=== PATIENT | female | born 1955 | race Caucasian/White ===

== ENCOUNTER → 2021-11-09 11:00 | Outpatient (BNVA) | payer MEDICARE, OTHER, SELFPAY | PROVIDERS: PCP Internal Medicine; Visit Provider Psychiatry & Neurology Neurology | DX: R41.89 Other symptoms and signs involving cognitive functions and awareness (principal); F32.A Depression, unspecified; F41.9 Anxiety disorder, unspecified | CPT/HCPCS: 99202 ==

== ENCOUNTER → 2022-04-05 13:35 | Outpatient (BNVA) | payer MEDICARE, OTHER, SELFPAY | PROVIDERS: PCP Internal Medicine; Visit Provider Psychiatry & Neurology Neurology | DX: F03.90 Unspecified dementia, unspecified severity, without behavioral disturbance, psychotic disturbance, mood disturbance, and anxiety (principal); F32.A Depression, unspecified; F41.9 Anxiety disorder, unspecified | CPT/HCPCS: 99212 ==

== ENCOUNTER → 2022-07-30 13:58 | Outpatient (BNVA) | payer MEDICARE, OTHER, SELFPAY | PROVIDERS: PCP Internal Medicine; Visit Provider Psychiatry & Neurology Neurology | DX: F03.90 Unspecified dementia, unspecified severity, without behavioral disturbance, psychotic disturbance, mood disturbance, and anxiety (principal); F32.A Depression, unspecified; F41.9 Anxiety disorder, unspecified | CPT/HCPCS: 99212 ==

== ENCOUNTER → 2022-10-16 13:56 | Outpatient (BNVA) | payer MEDICARE, OTHER, SELFPAY | PROVIDERS: PCP Internal Medicine; Visit Provider Psychiatry & Neurology Neurology | DX: F03.90 Unspecified dementia, unspecified severity, without behavioral disturbance, psychotic disturbance, mood disturbance, and anxiety (principal); F32.A Depression, unspecified; F41.9 Anxiety disorder, unspecified | CPT/HCPCS: 99212 ==

== ENCOUNTER 2023-01-24 14:08 | Outpatient (AMB) | payer MEDICARE, OTHER, SELFPAY ==
--- NOTE | 2023-01-24 14:23 | A.OFFVIS_ITS ---
Intake Vital Signs 01/24/23 14:26 Height 5 ft 8 in Weight 114 lb BMI 17.3 BP 118/68 Blood Pressure Location Rt brachial Pulse 77 Pulse Source Pulse Oximeter Pulse Oximetry (%) 97 Oxygen Delivery Method Room Air Intake Visit Reasons: 3m f/u-lvm Intake Note: Pt presents today for fup in memory loss, pt states shes doing ok but depressed Allergies penicillin G Allergy (Mild, Verified 01/24/23 14:32) Unknown Medication List - Last Reconciled 01/24/23 by Joaquina Rios MD alprazolam (Xanax) 0.25 mg PO BEDTIME PRN alprazolam (Xanax) 0.25 mg PO BID PRN 30 days MDD 2 tabs donepezil 10 mg PO BEDTIME escitalopram oxalate 20 mg PO DAILY escitalopram oxalate 10 mg PO DAILY mirtazapine 30 mg PO BEDTIME omeprazole 20 mg PO DAILY ondansetron HCl 4 mg PO Q8H PRN HPI HPI Comments History of Present Illness0 Details 67y/o left handed [facility].she wakes up in the morning, very anxious, not motivated. Memory has been stable.Her neuropsyhc eval was c/w early Dementia and poorly controlled mood.she reports increased anxiety and depression. Her lexapro was increased to 30mg qd, has a therapist .Sleep is good with mirtazepine.she talks to a therapist. No thoughts of hurting herself she could not tolerate memantine Previous History- The patient noticed increase in forgetfulness with short term memory issues about 6mths to 1 year. It increases her anxiety which further worsens her cognition. she forgets conversations, misplace things, repeat questions, forgets appointments, uses a calender. she has trouble with computers. Her driving is Ok but anxious.she got lost once trying to find her friends house but as per her she was always bad with directions. 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 She thinks her mood worsened since then. She also had unexplained weight loss for more than 6 mths. she had nausea which is better. She was diagnosed with depression in 2003 when her father . In Mar 2020 her mood worsened and also had severe anxiety.. [facility] Medical History Shingles Malaise and fatigue Seasonal allergies Asthma Arthritis Anosmia Osteopenia Anxiety Depression Surgical History Hx of colonoscopy Hx of cholecystectomy Family History Father Arthritis, rheumatoid Mother Epilepsy Aneurysm Family/Other Migraine Family/Other Migraine Social History Household Members: Spouse Alcohol intake: never Patient Tobacco Use Status: Never used Tobacco service: No Current occupational status: retired Cognitive needs: No Hearing needs: No Vision needs: Yes Physical Exam Vital Signs: Last Vital Signs Pulse 77 01/24/23 14:26 BP 118/68 01/24/23 14:26 Pulse Ox 97 01/24/23 14:26 Oxygen Delivery Method Room Air 01/24/23 14:26 BMI result Body Mass Index 17.3 Const General: cooperative, healthy appearing, comfortable, no acute distress and anxious Nutritional Appearance: thin Orientation/consciousness: patient oriented x3 Limitations: no limitations HEENT Head: Yes normal to inspection Face and sinus: Yes normal facial exam Eyes Pupils: Equal, round and reactive pupils present Neuro Other: Mini Mental Status Exam Date-09/07 Place-09/07 Registration- 3/3 Spelling 5 letter backwards- 09/07 Recall- 3/3 3 step commands- 3/3 repetition- good naming- good reading- good Clock drawing was normal 30/30 Mild left UE cog wheel rigidity General: patient oriented x3 and moves all extremities Cranial nerves: Yes Facial sensation intact/muscles of mastication intact, Yes Equal, round and reactive pupils present, Yes Bilaterally intact EOM present, Yes Normal facial strength present and Yes Midline tongue present Cognition (Neuro): normal cognition Gait exam (Neuro): Other gait observations present (mild stoop and decreased arm swing - L>r) Motor exam (neuro): 5/5 motor strength present throughout Psych Affect: Anxious affect present Attitude: cooperative Assessment & Plan Assessment & Plan (1) Dementia: Code(s): F03.90 - Unspecified dementia, unspecified severity, without behavioral disturbance, psychotic disturbance, mood disturbance, and anxiety (2) Depression: Code(s): F32.A - Depression, unspecified (3) Anxiety: Code(s): F41.9 - Anxiety disorder, unspecified Plan Lexapro 30mg qd Increase mirtazepine 30mg qhs Xanax 0.25 mg as needed Psychiatry referral-PCP- seeing a therapist Melatonin 3-5 mg qhs Donepezil 10mg qd Neuropsych evaluation discussed in detail. Medications: Changed From mirtazapine 15 mg PO BEDTIME 90 tabs 2RF To mirtazapine 30 mg PO BEDTIME 30 tabs 2RF Coding Level of Care Code Est Pt Level 4 (55010) Diagnoses Dementia F03.90 Depression F32.A Anxiety F41.9
[2023-01-24 14:26] VITALS: BP 118/68; PULSE 77; O2SAT 97; BMI 17.3
== END 2023-01-24 14:48 | disposition home or self-care (01) ==
PROVIDERS: PCP Internal Medicine; Visit Provider Psychiatry & Neurology Neurology
DX: F03.90 Unspecified dementia, unspecified severity, without behavioral disturbance, psychotic disturbance, mood disturbance, and anxiety (principal); F32.A Depression, unspecified; F41.9 Anxiety disorder, unspecified
CPT/HCPCS: 99214

== ENCOUNTER → 2023-01-24 14:08 | Outpatient (BNVA) | payer MEDICARE, OTHER, SELFPAY | PROVIDERS: PCP Internal Medicine; Visit Provider Psychiatry & Neurology Neurology | DX: F03.90 Unspecified dementia, unspecified severity, without behavioral disturbance, psychotic disturbance, mood disturbance, and anxiety (principal); F32.A Depression, unspecified; F41.9 Anxiety disorder, unspecified | CPT/HCPCS: 99212 ==

== ENCOUNTER 2023-06-06 15:30 | Outpatient (AMB) | payer MEDICARE, OTHER, SELFPAY ==
--- NOTE | 2023-06-06 15:37 | A.OFFVIS_ITS ---
Intake Vital Signs 06/06/23 15:39 Height 5 ft 8 in Weight 122 lb 1 oz BMI 18.6 BP 100/62 Blood Pressure Location Lt brachial Position Sitting Respiration 16 Pulse 81 Pulse Source Pulse Oximeter Pulse Oximetry (%) 94 Oxygen Delivery Method Room Air Intake Visit Reasons: 3 mnts f/u appt/ Confirmed Intake Note: Pt presents for a 3 month follow up for memory disturbance.Pt notes no change in her symptoms since last visit. Bungy Jump Master Required: No Allergies penicillin G Allergy (Mild, Verified 06/06/23 15:38) Unknown Medication List - Last Reconciled 06/06/23 by Joaquina Rios MD alprazolam (Xanax) 0.25 mg PO BEDTIME PRN alprazolam (Xanax) 0.25 mg PO BID PRN 30 days MDD 2 tabs donepezil 10 mg PO BEDTIME duloxetine 60 mg PO DAILY mirtazapine 30 mg PO BEDTIME omeprazole 20 mg PO DAILY ondansetron HCl 4 mg PO Q8H PRN HPI HPI Comments History of Present Illness Details 67y/o left handed [facility] and anxiety.Her memory and mood are stable .she is seeing a psychiatric prescriber at [facility].Lexapro was d/c ed and she was started on duloxetine. Her neuropsyhc eval was c/w early Dementia and poorly controlled mood.she reports increased anxiety and depression. Her lexapro was increased to 30mg qd, has a therapist .Sleep is good with mirtazepine.she talks to a therapist. No thoughts of hurting herself she could not tolerate memantine Previous History- The patient noticed increase in forgetfulness with short term memory issues about 6mths to 1 year. It increases her anxiety which further worsens her cognition. she forgets conversations, misplace things, repeat questions, forgets appointments, uses a calender. she has trouble with computers. Her driving is Ok but anxious.she got lost once trying to find her friends house but as per her she was always bad with directions. 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 She thinks her mood worsened since then. She also had unexplained weight loss for more than 6 mths. she had nausea which is better. She was diagnosed with depression in 2003 when her father . In Mar 2020 her mood worsened and also had severe anxiety.. [facility] Medical History Shingles Malaise and fatigue Seasonal allergies Asthma Arthritis Anosmia Osteopenia Anxiety Depression Surgical History Hx of colonoscopy Hx of cholecystectomy Family History Father Arthritis, rheumatoid Mother Epilepsy Aneurysm Family/Other Migraine Family/Other Migraine Social History Household Members: Spouse Alcohol intake: never Patient Tobacco Use Status: Never used Tobacco service: No Current occupational status: retired Cognitive needs: No Hearing needs: No Vision needs: Yes Physical Exam Vital Signs: Last Vital Signs Pulse 81 06/06/23 15:39 Resp 16 06/06/23 15:39 BP 100/62 06/06/23 15:39 Pulse Ox 94 06/06/23 15:39 Oxygen Delivery Method Room Air 06/06/23 15:39 BMI result Body Mass Index 18.6 Const General: cooperative, healthy appearing, comfortable and no acute distress Nutritional Appearance: thin Orientation/consciousness: patient oriented x3 Limitations: no limitations HEENT Head: Yes normal to inspection Face and sinus: Yes normal facial exam Eyes Pupils: Equal, round and reactive pupils present Neuro Other: Mild left UE cog wheel rigidity General: patient oriented x3 and moves all extremities Cranial nerves: Yes Facial sensation intact/muscles of mastication intact, Yes Equal, round and reactive pupils present, Yes Bilaterally intact EOM present, Yes Normal facial strength present and Yes Midline tongue present Cognition (Neuro): normal cognition Gait exam (Neuro): Other gait observations present (mild stoop and decreased arm swing - L>r) Motor exam (neuro): 5/5 motor strength present throughout Psych Affect: Anxious affect present Attitude: cooperative Assessment & Plan Assessment & Plan (1) Dementia: Code(s): F03.90 - Unspecified dementia, unspecified severity, without behavioral disturbance, psychotic disturbance, mood disturbance, and anxiety (2) Depression: Code(s): F32.A - Depression, unspecified (3) Anxiety: Code(s): F41.9 - Anxiety disorder, unspecified Plan Duloxetine 60mg qd mirtazepine 30mg qhs Xanax 0.25 mg as needed Psychiatry -PCP- seeing a therapist Melatonin 3-5 mg qhs Donepezil 10mg qd Neuropsych evaluation discussed in detail. Medications: Discontinued escitalopram oxalate Discontinued Reason: Patient no longer taking 20 mg PO DAILY 30 tabs 6RF escitalopram oxalate Discontinued Reason: Patient no longer taking 10 mg PO DAILY 30 tabs 6RF Coding Level of Care Code Est Pt Level 4 (52733) Diagnoses Dementia F03.90 Depression F32.A Anxiety F41.9
[2023-06-06 15:39] VITALS: BP 100/62; PULSE 81; RESP 16; O2SAT 94; BMI 18.6
== END 2023-06-06 16:04 | disposition home or self-care (01) ==
PROVIDERS: PCP Internal Medicine; Visit Provider Psychiatry & Neurology Neurology
DX: F03.90 Unspecified dementia, unspecified severity, without behavioral disturbance, psychotic disturbance, mood disturbance, and anxiety (principal); F32.A Depression, unspecified; F41.9 Anxiety disorder, unspecified
CPT/HCPCS: 99214

== ENCOUNTER → 2023-06-06 15:30 | Outpatient (BNVA) | payer MEDICARE, OTHER, SELFPAY | PROVIDERS: PCP Internal Medicine; Visit Provider Psychiatry & Neurology Neurology | DX: F03.90 Unspecified dementia, unspecified severity, without behavioral disturbance, psychotic disturbance, mood disturbance, and anxiety (principal); F32.A Depression, unspecified; F41.9 Anxiety disorder, unspecified; Z79.899 Other long term (current) drug therapy | CPT/HCPCS: 99212 ==

== ENCOUNTER 2024-05-27 11:36 | Outpatient (AMB) | payer MEDICARE, OTHER, SELFPAY ==
[2024-05-27 11:38] VITALS: BP 122/78; BMI 18.5
--- NOTE | 2024-05-27 11:38 | MHC.OFFVIS ---
Vital Signs 05/27/24 11:38 Height 5 ft 8 in Weight 121 lb 8 oz BMI 18.5 BP 122/78 Blood Pressure Location Rt brachial Position Sitting Intake Visit Reasons: 6 mo f/u Intake Note: Patient presents for 6 month follow up. Allergies penicillin G Allergy (Mild, Verified 05/27/24 11:40) Unknown Medication List - Last Reconciled 05/27/24 by Joaquina Rios MD alprazolam (Xanax) 0.25 mg PO BID PRN 30 days MDD 2 tabs donepezil 10 mg PO BEDTIME duloxetine 60 mg PO DAILY mirtazapine 30 mg PO BEDTIME omeprazole 20 mg PO DAILY ondansetron HCl 4 mg PO Q8H PRN HPI Comments Details: 67y/o left handed female comes for follow up of memory impairment and anxiety.Her memory and mood are stable .she is seeing a psychiatric prescriber at [facility].Lexapro was d/c ed and she was started on duloxetine. Her neuropsyhc eval was c/w early Dementia and poorly controlled mood.she reports increased anxiety and depression. Her lexapro was increased to 30mg qd, has a therapist .Sleep is good with mirtazepine.she talks to a therapist. No thoughts of hurting herself she could not tolerate memantine Previous History- The patient noticed increase in forgetfulness with short term memory issues about 6mths to 1 year. It increases her anxiety which further worsens her cognition. she forgets conversations, misplace things, repeat questions, forgets appointments, uses a calender. she has trouble with computers. Her driving is Ok but anxious.she got lost once trying to find her friends house but as per her she was always bad with directions. 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 She thinks her mood worsened since then. She also had unexplained weight loss for more than 6 mths. she had nausea which is better. She was diagnosed with depression in 2003 when her father . In Mar 2020 her mood worsened and also had severe anxiety.. [facility] Medical History Shingles Malaise and fatigue Seasonal allergies Asthma Arthritis Anosmia Osteopenia Anxiety Depression Surgical History Hx of colonoscopy Hx of cholecystectomy Family History Father Arthritis, rheumatoid Mother Epilepsy Aneurysm Family/Other Migraine Family/Other Migraine Social History Household Members: Spouse Alcohol intake: never Patient Tobacco Use Status: Never used Tobacco service: No Current occupational status: retired Cognitive needs: No Hearing needs: No Vision needs: Yes Physical Exam Vital Signs: Last Vital Signs BP 122/78 05/27/24 11:38 BMI result Body Mass Index 18.5 Const General: cooperative, healthy appearing, comfortable and no acute distress Nutritional Appearance: thin Orientation/consciousness: patient oriented x3 Limitations: no limitations HEENT Head: Yes normal to inspection Face and sinus: Yes normal facial exam Eyes Pupils: Equal, round and reactive pupils present Neuro Other: Mild left UE cog wheel rigidity General: patient oriented x3 and moves all extremities Cranial nerves: Yes Facial sensation intact/muscles of mastication intact, Yes Equal, round and reactive pupils present, Yes Bilaterally intact EOM present, Yes Normal facial strength present and Yes Midline tongue present Cognition (Neuro): normal cognition Gait exam (Neuro): Other gait observations present (mild stoop and decreased arm swing - L>r) Motor exam (neuro): 5/5 motor strength present throughout Orientation What is the (year) (season) (date) (day) (month)?: year, season, date, day and month Where are we (state) (county) (town or city) (hospital) (floor)?: state, county, town or city, hospital/clinic and floor Registration Name of 3 unrelated objects clearly and slowly, then ask patient to repeat all 3 of them. (1st repeat determines score. Make sure they can repeat all three): object 1, object 2 and object 3 Attention & Calculation (CHOOSE ONE) Spell WORLD backwards (DLROW): 4 letters Recall Ask patient to repeat the 3 items from question #3.: object 1, object 2 and object 3 Language Show patient a wristwatch & ask what it is. Repeat for pencil.: watch and pencil Ask the patient to repeat the phrase 'No ifs, ands, or buts' after you.: correct Ask the patient to 'take a piece of paper with their right hand' 'fold paper in half' 'place paper on floor': take paper in right hand, fold paper in half and place paper on floor Print the sentence 'CLOSE YOUR EYES' on a piece. If patient actually closes eyes then score.: followed written direction Give patient a blank piece of paper & ask to write a sentence. Score if it contains a noun & verb.: sentence contains subject and verb Score Score: 28 Assessment & Plan Assessment & Plan (1) Dementia: Code(s): F03.90 - Unspecified dementia, unspecified severity, without behavioral disturbance, psychotic disturbance, mood disturbance, and anxiety Category: Medical Qualifiers: Dementia type: unspecified type Dementia severity: mild Dementia behavioral or psychological symptom: with mood disturbance Qualified Code(s): F03.A3 - Unspecified dementia, mild, with mood disturbance (2) Depression: Code(s): F32.A - Depression, unspecified Category: Medical Qualifiers: Depression Type: other depression Qualified Code(s): F32.89 - Other specified depressive episodes (3) Anxiety: Code(s): F41.9 - Anxiety disorder, unspecified Category: Medical Plan Duloxetine 60mg qd mirtazepine 30mg qhs Xanax 0.25 mg as needed Psychiatry -PCP- seeing a therapist Melatonin 3-5 mg qhs Donepezil 10mg qd PET scan AMyloid to assess if she is a candidate for anti amyloid medications Neuropsych evaluation discussed in detail. Orders: Orders PET Brain beta amyloid Today F03.A3 - Unspecified dementia, mild, with mood disturbance Coding Level of Care Code Est Pt Level 4 (60164) Complex EM visit Add On [id number] Diagnoses Mild dementia with mood disturbance, unspecified dementia type F03.A3 Dementia type: unspecified type Dementia severity: mild Dementia behavioral or psychological symptom: with mood disturbance Other depression F32.89 Depression Type: other depression Anxiety F41.9
--- OUTSIDE RECORDS SUMMARY | 2024-05-27 13:20 | XMS_ITS | Clinical Summary ---
Author Organization [place] [address] [address] [facility] Address [address] [place] [address] Phone Care Team Providers Care Tumbler Plater Name Role Phone Vivek Robledo MD Primary Care Provider [phone] Allergies Active Allergy Reactions Criticality Noted Date Comments Penicillins Hives 05/30/2005 Medications Medication Sig Dispensed Refills Start Date End Date Status alendronate (FOSAMAX) 70 mg tablet Take 1 tablet (70 mg total) by mouth every 7 (seven) days. 09/07/2020 Active atorvastatin (LIPITOR) 40 mg tablet Take 1 tablet (40 mg total) by mouth 1 (one) time each day. 08/26/2023 Active ALPRAZolam (XANAX) 0.25 mg tablet TAEK 1 TABLET BY MOUTH 2 TIMES A DAY NEEDED FOR ANXIETY FOR 30 DAYS, MAX DAILY DOSE: 2 TABS 11/16/2022 Active aspirin 81 mg EC tablet Take 1 tablet (81 mg total) by mouth. 03/04/2023 Active donepeziL (ARICEPT) 5 mg tablet 11/29/2022 Active mirtazapine (REMERON) 15 mg tablet Take 1 tablet (15 mg total) by mouth 1 (one) time each day. 07/25/2021 Active CALCIUM CARBONATE-VITAMI N D3 ORAL Take by mouth daily. - Oral Active MULTIVITAMIN ORAL 1 tab qd - Oral Active DULoxetine (CYMBALTA) [address] capsule Take 1 capsule (60 mg total) by mouth 1 (one) time each day. 02/22/2024 Active omeprazole (PriLOSEC) [address] capsule TAKE 1 CAPSULE BY MOUTH EVERY DAY IN THE MORNING BEFORE BREAKFAST 06/03/2023 5 Discontinued albuterol HFA (PROAIR HFA ; PROVENTIL HFA ; VENTOLIN HFA) 90 mcg/actuation inhaler Take 2 puffs by mouth. 10/28/2015 5 Discontinued(Disc ontinued by another clinician) ondansetron (ZOFRAN) 4 mg tablet Take 1 tablet (4 mg total) by mouth. 09/07/2022 5 Discontinued omega-3 fatty acids 1,000 mg capsule Take by mouth daily. - Oral 5 Discontinued Active Problems Problem Noted Date Diagnosed Date Dysarthria 08/15/2023 Overview (12/26/2023): TRANSIENT Hyperlipidemia 12/04/2022 Assessment & Plan (05/12/2024 6:37 PM EST): Follow low-cholesterol diet. Continue atorvastatin. Orders: Lipid panel with reflex to direct LDL; Future Comprehensive metabolic panel; Future Bilateral carotid artery stenosis 06/04/2022 Mild Alzheimer's dementia with mood disturbance 05/10/2022 Assessment & Plan (05/12/2024 6:37 PM EST): For underlying dementia, she is currently donepezil and follow-up with neurology. Anxiety 10/26/2021 Assessment & Plan (05/12/2024 6:37 PM EST): Extensive counseling done today. I did encourage her to seek out therapy. After extensive discussion, she is agreeable to to do more walks which she states helps with her anxiety. Will monitor thyroid levels. Orders: Thyroid stimulating hormone with reflex to free t4 and free t3; Future Osteopenia of hip 01/13/2019 Overview (12/26/2023): 01/2019 30% major Fx risk, hip neck quite low density. Alendronate started. Anosmia 10/28/2015 Abnormal CXR 10/07/2007 Malaise and fatigue 10/21/2006 Depressive disorder 05/30/2005 Genital herpes 05/30/2005 Overview (12/26/2023): IMO update Encounters Date Type Department Care Team Description 05/12/2024 3:30 PM EST Office Visit [facility] - [facility] [address] [place] [address] Vivek Robledo MD Mild Alzheimer's dementia with mood disturbance, unspecified timing of dementia onset (CMS/HCC) (Primary Dx); Anxiety; Hyperlipidemia, unspecified hyperlipidemia type; Ascending aorta dilatation (CMS/HCC) from Last 3 Months Immunizations Name Administration Dates Next Due Influenza Quadravalent, MDCK , 0.5ml, with preservative (Flucelvax) 6mo and older 03/26/2017 Influenza trivalent, 0.5mL (Fluad) 65yo and olde r 03/17/2021,02/11/2020 Pneumococcal conjugate 13 va lent (Prevnar 13, PCV13) 2mo and older 11/20/2018 Pneumococcal polysaccharide 23 valent (Pneumovax 23) 2yo and older 01/07/2020 Td Tetanus diptheria (Tdvax) 7yo and older 01/06,05/06/2004 Tdap Tetanus diptheria acell ular pertussis (Boostrix; Adacel) 7yo and older 11/26/2008 Surgical History Surgery Date Site/Laterality Comments CHOLECYSTECTOMY -2003 PROCEDURE: LAPAROSCOPY, CHOLECYSTECTOMY OTHER SURGICAL HISTORY 1989?? PROCEDURE: FL DILATION & CURETTAGE DX&/THER NONOBSTETRIC COLONOSCOPY 09/07/15 PROCEDURE: HISTORICAL COLONOSCOPY; COMMENT: tics; repeat in ten yrs Medical History Medical History Date Comments Other specified personal his tory presenting hazards to health(V15.89) late 1969 DX:Other specifie d personal history presenting hazards to health(V15.89); COMMENT: had cryosurgery Obstructive airway disease (CMS/HCC) 10/07/2007 DX:Obstructive airway disease (HCC) Family history of bicuspid a ortic valve 11/20/2018 DX:Family history of bicuspi d aortic valve Anxiety 10/26/2021 DX:Anxiety 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 (CMS/HCC) 05/10/2022 DX:Mild Alzheimer's dementia with mood disturbance (HCC) Bilateral carotid artery stenosis 06/04/2022 DX:Bilateral carotid artery stenosis Family History Medical History Relation Name Comments No Known Problems Brother 1 No Known Problems Brother 2 No Known Problems Daughter Karin Arthritis Father rheumatoid Cataracts Father Other: Other Mother COPD, brain ane urysm No Known Problems Sister 1 No Known Problems Sister 2 No Known Problems Sister 3 No Known Problems Son Tee Blindness Neg Hx Breast cancer Neg Hx Colon cancer Neg Hx Glaucoma Neg Hx Macular degeneration Neg Hx Ovarian cancer Neg Hx Strabismus Neg Hx Relation Name Status Comments Brother 1 Alive 2,healthy, one with severe migraine Brother 2 Alive Daughter Karin Alive partial seizure s age 2&1/2, migraine related Father Rheumatoid Arth ritis, rheumatoid lung Mother AVM, Copd, seiz ures Sister 1 Alive 3,healthy, one with partial seizures, 1 with migraines Sister 2 Alive Sister 3 Alive Son Tee Alive adopted, Zachar y Social History Tobacco Use Types Packs/Day Years Used Date Smoking Tobacco: Never Smokeless Tobacco: Never Tobacco Cessation:Counseling Given: Not Answered Alcohol Use Standard Drinks/Week Comments Yes 0 (1 standard drink = 0.6 oz pur e alcohol) Sex and Gender Information Value Date Recorded Sex Assigned at Not on file Gender Identity Not on file Sexual Orientation Not on file Job Start Date Occupation Industry Not on file Not on file Not on file Obstetrics History Last Filed Vital Signs Vital Sign Reading Time Taken Comments Blood Pressure 114/58 05/12/2024 2:46 PM EST Pulse 80 05/12/2024 2:46 PM EST Temperature - - Respiratory Rate - - Oxygen Saturation - - Inhaled Oxygen Concentration - - Weight 55.4 kg (122 lb 3.2 oz) 05/12/2024 2:46 P M EST Height 172.7 cm (5' 8 ) 05/12/2024 2:46 PM EST Body Mass Index 18.58 05/12/2024 2:46 PM EST Plan of Treatment Upcoming Encounters Date Type Department Care Team (Late st Contact Info) Description 07/21/2024 3:30 PM EDT Ancillary Procedure [facility] [address] [facility] [address] [place] [address] 09/10/2024 1:00 PM EDT Office Visit Internal Medicine - [address] [phone] Vivek Robledo MD [address] [place] [address] 10/21/2024 1:00 PM EDT Appointment Radiology Department [address] [phone] Health Maintenance Due Date Last Done Comments Zoster Vaccines (1 of 2) 09/22/2003 RSV Immunization Patients 60+ Years Old (1 - Risk 60-74 years 1-dose series) 2013 Falls Risk Assessment 04/14/2022 Social Influencers of Health Screening 04/14/2022 COVID-19 Vaccine ( season) 2024 03/25/2021, 07/28/2020 Influenza Vaccine (#1) 2024 , 02/11/2020, 03/12/2019, Additional history exists Depression Screening 01/20/2025 01/21/2024 Medicare Annual Wellness Visit 01/20/2025 01/21/2024 Colorectal Cancer Screening: Colonoscopy 09/06/2025 09/07/2015, 05/10/2004 Cervical Cancer Screening: HPV 09/13/2025 09/13/2020 Breast Cancer Screening 10/15/2025 10/16/19, 10/16/2023, 10/04/2022, Additional history exists Cholesterol Screening (Lipid Panel) 05/13/2029 05/13/2024, 08/15/2023 DTaP,Tdap,and Td Vaccines (4 - Td or Tdap) 01/06/2030 01/07/2020, 11/26/2008, 05/06/2004 Osteoporosis Screening (Bone Density Screening) 02/16/2032 02/15/2022, 01/01/2019 Hepatitis C Screening Completed 09/30/2002 Pneumococcal Vaccine: 65+ Years Completed 01/07/2020, 11/20/2018 HIB Vaccines Aged Out No longer eligi ble based on patient's age to complete this topic HPV Vaccines Aged Out No longer eligi ble based on patient's age to complete this topic Hepatitis A Vaccines Aged Out No long er eligible based on patient's age to complete this topic Hepatitis B Vaccines Aged Out No long er eligible based on patient's age to complete this topic IPV Vaccines Aged Out No longer eligi ble based on patient's age to complete this topic MMR Vaccines Aged Out No longer eligi ble based on patient's age to complete this topic Meningococcal ACWY Vaccine Aged Out N o longer eligible based on patient's age to complete this topic RSV Immunization Patients Under 20 months Aged Out No longer eligible based on patient's age to complete this topic Varicella Vaccines Aged Out No longer eligible based on patient's age to complete this topic Procedures Procedure Name Priority Date/Time Associated Diagnosis Comments LIPID PANEL WITH REFLEX TO DIRECT LDL Routine 05/13/2024 9:52 AM EST Hyperlipidemia, unspecified hyperlipidemia type COMPREHENSIVE METABOLIC PANEL Routine 05/13/2024 9:52 AM EST Hyperlipidemia, unspecified hyperlipidemia type THYROID STIMULATING HORMONE WITH REFLEX TO FREE T4 AND FREE T3 Routine 05/13/2024 9:52 AM EST Anxiety DEPRESSION SCREENING Routine 01/21/2024 SCREENING MAMMOGRAPHY BI 2-VIEW BREAST INC CAD Routine 10/16/2023 1:37 PM EDT Encounter for screening mammogram for malignant neoplasm of breast DXA BONE DENSITY STUDY 1+ SITS AXIAL SKEL Routine 02/15/2022 1:38 PM EDT Other specified disorders of bone density and structure, unspecified site HPV Routine 09/13/2020 COLONOSCOPY Routine 09/07/2015 HEPATITIS C SCREENING Routine 09/30/2002 from Last 3 Months or Most Recently Relevant to Health Maintenance Results * Thyroid stimulating hormone with reflex to free t4 and free t3 (05/13/2024 9:52 AM EST) TSH 2.09 0.40 - 4.00 mcIU/mL LAB CHEMISTRY METHOD 05/13/2024 12:43 PM EST [facility] Blood Venous blood specimen / Unknown Venipuncture / Unknown 05/13/2024 9:52 AM EST 05/13/2024 9:52 AM EST Vivek Robledo MD LAB BLOOD ORDERAB LES [facility] [address] [place] [address], [place] [phone] * Lipid panel with reflex to direct LDL (05/13/2024 9:52 AM EST) Pathologist [facility] Cholesterol 173 0 - 200 mg/dL LAB CHEMISTRY METHOD 05/13/2024 1:08 PM EST [facility] Triglycerides 36 0 - 150 mg/dL LAB CHEMISTRY METHOD 05/13/2024 1:[address] [facility] HDL 87 >=40 mg/dL LAB CHEMISTRY METHOD 05/13/2024 1:08 PM EST [facility] LDL Calculated 79 0 - 100 mg/dL LAB CHEMISTRY METHOD 05/13/2024 1:[address] [facility] VLDL Cholesterol Jacoby 7.2 mg/dL LAB CHEMISTRY METHOD 05/13/2024 1:08 PM EST [facility] Non HDL Chol. (LDL+VLDL) 86 <145 mg/dL LAB CHEMISTRY METHOD 05/13/2024 1:[address] [facility] Chol/HDL Ratio 2.0 0.0 - 4.4 LAB CHEMISTRY METHOD 05/13/2024 1:[address] [facility] Blood Venous blood specimen / Unknown Venipuncture / Unknown 05/13/2024 9:52 AM EST 05/13/2024 9:52 AM EST Vivek Robledo MD LAB BLOOD ORDERAB LES [facility] [address] [place] [address], [place] [phone] * (ABNORMAL) Comprehensive metabolic panel (05/13/2024 9:52 AM EST) Sodium 141 133 - 145 mmol/L LAB CHEMISTRY METHOD 05/13/2024 1:[address] [facility] Potassium 4.1 3.5 - 5.5 mmol/L LAB CHEMISTRY METHOD 05/13/2024 1:[address] [facility] Chloride 104 96 - 110 mmol/L LAB CHEMISTRY METHOD 05/13/2024 1:[address] [facility] CO2 34(H) 21 - 32 mmol/L LAB CHEMISTRY METHOD 05/13/2024 1:[address] [facility] Anion Gap 3 3 - 11 LAB CHEMISTRY METHOD 05/13/2024 1:[address] [facility] Glucose 95 70 - 100 mg/dL LAB CHEMISTRY METHOD 05/13/2024 1:[address] [facility] BUN 20 5 - 25 mg/dL LAB CHEMISTRY METHOD 05/13/2024 1:[address] [facility] Creatinine 0.67 0.50 - 1.10 mg/dL LAB CHEMISTRY METHOD 05/13/2024 1:[address] [facility] eGFR 94 >=60 mL/min/1. 73m2 LAB CHEMISTRY METHOD 05/13/2024 1:[address] [facility] Comment:Calculation based on the??Chronic Kidney Disease Epidemiology Collaboration (CKD-EPI) equation refit??without adjustment for race. BUN/Creatinine Ratio 29.9 LAB CHEMISTRY METHOD 05/13/2024 1:[address] [facility] Calcium 9.2 8.5 - 10.5 mg/dL LAB CHEMISTRY METHOD 05/13/2024 1:[address] [facility] AST (SGOT) 27 10 - 42 unit/L LAB CHEMISTRY METHOD 05/13/2024 1:[address] [facility] ALT (SGPT) 38 10 - 60 unit/L LAB CHEMISTRY METHOD 05/13/2024 1:[address] [facility] Alkaline Phosphatase 74 42 - 121 unit/L LAB CHEMISTRY METHOD 05/13/2024 1:05 PM EST [facility] Total Protein 6.9 6.0 - 8.0 g/dL LAB CHEMISTRY METHOD 05/13/2024 1:05 PM EST [facility] Albumin 3.9 3.2 - 5.0 g/dL LAB CHEMISTRY METHOD 05/13/2024 1:05 PM EST [facility] Total Bilirubin 0.7 0.0 - 1.4 mg/dL LAB CHEMISTRY METHOD 05/13/2024 1:05 PM EST [facility] Blood Venous blood specimen / Unknown Venipuncture / Unknown 05/13/2024 9:52 AM EST 05/13/2024 9:52 AM EST Vivek Robledo MD LAB BLOOD ORDERAB LES [facility] [address] [place] [address], * Depression Screening (01/21/2024) Depression Screening abstracted Historical Provider [facility] * SCREENING MAMMOGRAPHY BI 2-VIEW BREAST INC CAD (10/16/2023 1:37 PM EDT) Anatomical Region Laterality Modality Radiographic [place] ging 10/04/2022 1:44 PM EDT Narrative 10/17/2023 4:36 PM EDT This is a summary report. The complete report is available in the patient's medical record. If you cannot access the medical record, please contact the sending organization for a detailed fax or copy. BILATERAL 3D DIGITAL SCREENING MAMMOGRAM History: Routine screening. ??No current breast complaints. ?? Comparison: Multiple priors dating back to 09/28/2020 Technique: Bilateral full-field digital 3D mammography was performed using standard CC and MLO projections CAD was used to evaluate this mammogram. Findings: Density: ??There are scattered areas of fibroglandular density-B RIGHT: No suspicious masses, groups of microcalcification or areas of architectural distortion identified. Stable typically benign parenchymal asymmetries LEFT: No suspicious masses, groups of microcalcifications or areas of architectural distortion identified. Stable typically benign parenchymal asymmetries IMPRESSION: : 1. ??No mammographic evidence of malignancy. BI-RADS Category 2 benign findings Recommendation: Routine annual screening mammography is recommended Procedure Note Manuel Amaya MD - 02/19/2024 This is a summary report. The complete report is available in thepatient's medical record. If you cannot access the medical record, pleasecontact the sending organization for a detailed fax or copy. BILATERAL 3D DIGITAL SCREENING MAMMOGRAM History: Routine screening. No current breast complaints. Comparison: Multiple priors dating back to 09/28/2020 Technique: Bilateral full-field digital 3D mammography was performed usingstandard CC and MLO projections CAD was used to evaluate this mammogram. Findings: Density: There are scattered areas of fibroglandular density-B RIGHT: No suspicious masses, groups of microcalcification or areas ofarchitectural distortion identified. Stable typically benign parenchymalasymmetries LEFT: No suspicious masses, groups of microcalcifications or areas ofarchitectural distortion identified. Stable typically benign parenchymalasymmetries IMPRESSION: : 1. No mammographic evidence of malignancy. BI-RADS Category 2 benign findings Recommendation: Routine annual screening mammography is recommended Vivek Robledo MD IMG XR PROCEDURES * DXA BONE DENSITY STUDY 1+ SITS AXIAL SKEL (02/15/2022 1:38 PM EDT) Anatomical Region Laterality Modality Bone Densitometr y 10/26/2021 9:27 AM EDT Narrative 02/15/2022 3:18 PM EDT BONE DENSITY (DEXA) ? Lumbar Spine T-score is -1.1. ?? (SD relative to 20-29 y/o adult) Z-score is 0.9. ??(SD relative to age matched peers) This is considered osteopenia by WHO criteria. Left Hip T-score is -1.3. Z-score is 0.1. This is considered osteopenia by WHO criteria. Lateral view of the spine demonstrates vertebral heights to be maintained. IMPRESSION: This patient is considered to have osteopenia by WHO criteria. This patient has a 21% risk of major osteoporotic fracture and a 3.1% risk of hip fracture over the next 10 years. (World Health Organization Fracture Risk Assessment) [facility] Department of Internal Medicine recommends using National Osteoporosis Foundation (NOF) guidelines in treatment decisions related to osteoporosis. NOF guidelines suggest considering treatment for postmenopausal women and men aged 50 or older presenting with the following: History of hip or vertebral fracture. T-score = -2.5 (DXA) at the femoral neck, total hip, or spine, after appropriate evaluation to exclude secondary causes. Low bone mass (T-score between -1.0 and -2.5 at the femoral neck or spine) AND a 10-year probability of a hip fracture = 3% OR a 10-year probability of a major osteoporosis-related fracture = 20% based on the [place]-adapted WHO algorithm Please note that all treatment decisions require clinical judgment and consideration of individual patient factors, including patient preferences, co-morbidities, previous drug use, risk factors not captured in the FRAX model (e.g., frailty, falls, vitamin D deficiency, increased bone turnover, interval significant decline in bone density) and possible under- or over-estimation of fracture risk by FRAX. Optional alternative screening schedule based on sergo Dunaway., [facility] May 24, 2011 for patients with osteopenia (based on hip BMD T-score) is as follows: * ??advanced osteopenia (T scores -2.00 to -2.49), BMD testing every year * ??moderate osteopenia (T scores -1.50 to -1.99), BMD testing every 5 years mild osteopenia or normal BMD (T scores -1.50 and higher), BMD testing every 15 years Procedure Note Chyna Mendosa MD - 04/24/2022 BONE DENSITY (DEXA) Lumbar Spine T-score is -1.1. (SD relative to 20-29 y/o adult) Z-score is 0.9. (SD relative to age matched peers) This is considered osteopenia by WHO criteria. Left Hip T-score is -1.3. Z-score is 0.1. This is considered osteopenia by WHO criteria. Lateral view of the spine demonstrates vertebral heights to bemaintained. IMPRESSION: This patient is considered to have osteopenia by WHO criteria. Thispatient has a 21% risk of major osteoporotic fracture and a 3.1% risk of hip fracture over the next10 years. (World Health Organization Fracture Risk Assessment) [facility] Department of Internal Medicine recommendsusing National Osteoporosis Foundation (NOF) guidelines in treatment decisions related toosteoporosis. NOF guidelines suggest considering treatment for postmenopausal women and menaged 50 or older presenting with the following: History of hip or vertebral fracture. T-score = -2.5 (DXA) at the femoral neck, total hip, or spine, afterappropriate evaluation to exclude secondary causes. Low bone mass (T-score between -1.0 and -2.5 at the femoral neck or spine)AND a 10-year probability of a hip fracture = 3% OR a 10-year probability of a majorosteoporosis-related fracture = 20% based on the [place]-adapted WHO algorithm Please note that all treatment decisions require clinical judgment andconsideration of individual patient factors, including patient preferences, co- morbidities,previous drug use, risk factors not captured in the FRAX model (e.g., frailty, falls, vitaminD deficiency, increased bone turnover, interval significant decline in bone density) andpossible under- or over-estimation of fracture risk by FRAX. Optional alternative screening schedule based on sergo Dunaway., [facility] for patients with osteopenia (based on hip BMD T-score) is as follows: * advanced osteopenia (T scores -2.00 to -2.49), BMD testing every year * moderate osteopenia (T scores -1.50 to -1.99), BMD testing every 5years mild osteopenia or normal BMD (T scores -1.50 and higher), BMD testingevery 15 years Vivek Robledo MD [facility] DXA PROCEDURE S * Cervical Cancer Screening: HPV (09/13/2020) Pathologist [facility] Cervical Cancer Screening: HPV abstracted, negative Historical Provider MD ABDIFATAH TORRES E * Colonoscopy (09/07/2015) [facility] Colonoscopy no interpretation , abstracted Anatomical Region Laterality Modality Other Historical Provider MD ABDIFATAH TORRES E * Hepatitis C Screening (09/30/2002) [facility] Hepatitis C Screening negative Historical Provider MD ABDIFATAH TORRES E from Last 3 Months or Most Recently Relevant to Health Maintenance Care Teams Tumbler Plater Relationship Specialty Start Date End Date Vivek Robledo MD [address] [place] [id number] PCP - General Internal Medicine 03/15/20
--- OUTSIDE RECORDS SUMMARY | 2024-05-27 13:20 | XMS_ITS | Encounter Summary ---
Author Organization [facility] Address [address] [place] [address] Care Team Providers Care Work Car Operator Name Role Phone Vivek Robledo MD Primary Care Provider [phone] [phone] Reason for Referral * Imaging (Routine) - Authorized Specialty Diagnoses / Procedures Referred By Contac t Referred To Contact Cardiology Diagnoses Ascending aorta dilatation (CMS/HCC) Procedures Transthoracic echocardiogram (TTE) complete with PRN contrast, bubble, strain, and 3D order panel HI TTE W 2D IMAGE COMPLETE W DOPPLER ECHO & COLOR FLOW DOPPLER ECHO HI MAI 2D COMPLETE W/CONTRAST OR W & WO CONTRAST WITH DOPPLER Vivek Robledo MD [address] [place] [address] [facility] Referral ID Status Reason Start Date Expiration Date V isits Requested Visits Authorized [id number] Authorized 05/12/2024 05/12/2025 1 1 Reason for Visit * Reason Comments Follow-up Encounter Details Date Type Department Care Team (Late st Contact Info) Description 05/12/2024 3:30 PM EST Office Visit Internal Medicine - [address] [phone] Vivek Robledo MD [address] [place] [id number] Mild Alzheimer's dementia with mood disturbance, unspecified timing of dementia onset (CMS/HCC) (Primary Dx); Anxiety; Hyperlipidemia, unspecified hyperlipidemia type; Ascending aorta dilatation (CMS/HCC) Social History Tobacco Use Types Packs/Day Years [...] file Not on file Not on file documented as of this encounter Last Filed Vital Signs Vital Sign Reading [...] Mass Index 18.58 05/12/2024 2:46 PM EST documented in this encounter Progress Notes * Vivek Robledo MD - 05/12/2024 3:30 PM ESTAssociated Problem(s): Mild Alzheimer's dementia with mood disturbance (CMS/HCC) For underlying dementia, she is currently donepezil and follow-up with neurology. * Vivek Robledo MD - 05/12/2024 3:30 PM ESTAssociated Problem(s): Anxiety Extensive counseling done today. I did encourage her to seek out therapy. After extensive discussion, she is agreeable to to do more walks which she states helps with her anxiety. Will monitor thyroid levels. Orders: Thyroid stimulating hormone with reflex to free t4 and free t3; Future * Vivek Robledo MD - 05/12/2024 3:30 PM ESTAssociated Problem(s): Hyperlipidemia Follow low-cholesterol diet. Continue atorvastatin. Orders: Lipid panel with reflex to direct LDL; Future Comprehensive metabolic panel; Future * Vivek Robledo MD - 05/12/2024 3:30 PM EST CHIEF COMPLAINT: Chief Complaint Patient presents with Follow-up IDENTIFIER: Rhonda Kim is a 68 y.o. old female. HPI Patient is a 68-year-old woman who presents to the office today for medication review. She has been evaluated by neurology previously for transient spell of dysarthria and had an MRI done. Did not reveal any acute intracranial pathology. She has a follow-up appointment scheduled. She followed up with cardiology on 08/26/2023. Patient had workup for TIA including CT, CTA, MRI, echo with bubble study. All nonrevealing. MRI showed possible small vessel disease. Recommended possible to increase atorvastatin to 40 mg daily to reduce LDL to less than 70. 30-day monitor was ordered. A 30-day monitor done on 08/30/2023 showed isolated APCs and PVCs and some brief runs of atrial tachycardia but no A-fib was seen. She had echocardiogram on 05/24/2023 Which showed normal left ventricular ejection fraction of 55 to60%. No evidence of [id number] shunting. Mild aortic insufficiency. Sinus of Valsalva dilatation4 cm. No changes since 05/28/2022. She she was previously following up with psychiatry and therapy for anxiety and depression. But patient states that she did not longer follows with a therapist anymore. She is still getting medications from the psychiatrist. Her last screening mammogram done on 10/16/2023 showed no evidence of malignancy. Her last colonoscopy was done on 09/07/2015 which showed diverticulosis. Repeat in 10 years. ROS: GENERAL: No malaise, significant weight loss or fever HEENT: No changes in hearing or vision, nose bleeds or other nasal problems RESPIRATORY: No cough, wheezing or shortness of breath CARDIOVASCULAR: No chest pain, leg swelling or palpitations GI: No abdominal discomfort, blood in stools or black stools NECK: No lumps, goiter, pain or significant neck swelling : No dysuria, frequency or incontinence MUSCULOSKELETAL: No joint pain or swelling, back pain, or muscle pain. SKIN: No lesions, rash or itching NEURO: See HPI PAST MEDICAL HISTORY: Patient Active Problem List Diagnosis Date Noted Dysarthria 08/15/2023 Hyperlipidemia 12/04/2022 Bilateral carotid artery stenosis 06/04/2022 Mild Alzheimer's dementia with mood disturbance (CMS/HCC) 05/10/2022 Anxiety 10/26/2021 Osteopenia of hip 01/13/2019 Anosmia 10/28/2015 Abnormal CXR 10/07/2007 Malaise and fatigue 10/21/2006 Depressive disorder 05/30/2005 Genital herpes 05/30/2005 Past Surgical History: Procedure Laterality Date CHOLECYSTECTOMY -2003 PROCEDURE: LAPAROSCOPY, CHOLECYSTECTOMY COLONOSCOPY 09/07/15 PROCEDURE: HISTORICAL COLONOSCOPY; COMMENT: tics; repeat in ten yrs OTHER SURGICAL HISTORY 1989?? PROCEDURE: HI DILATION & CURETTAGE DX&/THER NONOBSTETRIC SOCIAL HISTORY: Social History Tobacco Use Smoking status: Never Smokeless tobacco: Never Substance Use Topics Alcohol use: Yes FAMILY HISTORY: Family History Problem Relation Name Age of Onset Cataracts Father Arthritis Father rheumatoid Other (Other: Other) Mother COPD, brain aneurysm No Known Problems Daughter Karin No Known Problems Son Tee No Known Problems Brother No Known Problems Brother No Known Problems Sister No Known Problems Sister No Known Problems Sister Blindness Neg Hx Glaucoma Neg Hx Macular degeneration Neg Hx Strabismus Neg Hx Breast cancer Neg Hx Colon cancer Neg Hx Ovarian cancer Neg Hx Family Status Relation Name Status Father Rheumatoid Arthritis, rheumatoid lung Mother AVM, Copd, seizures Daughter Karin Alive partial seizures age 2&1/2, migraine related Son Tee Alive adopted, Tee Brother Alive 2,healthy, one with severe migraine Brother Alive Sister Alive 3,healthy, one with partial seizures, 1 with migraines Sister Alive Sister Alive Neg Hx (Not Specified) No partnership data on file MEDICATIONS DISCONTINUED/REORDERED: Medications Discontinued During This Encounter Medication Reason albuterol HFA (PROAIR HFA ; PROVENTIL HFA ; VENTOLIN HFA) 90 mcg/actuation inhaler Discontinued by another clinician omeprazole (PriLOSEC) [address] capsule ondansetron (ZOFRAN) 4 mg tablet omega-3 fatty acids 1,000 mg capsule ACTIVE MEDICATIONS: Outpatient Medications Marked as Taking for the 05/12/24 encounter (Office Visit) with Vivek Robledo MD Medication Sig Dispense Refill alendronate (FOSAMAX) 70 mg tablet Take 1 tablet (70 mg total) by mouth every 7 (seven) days. ALPRAZolam (XANAX) 0.25 mg tablet TAEK 1 TABLET BY MOUTH 2 TIMES A DAY NEEDED FOR ANXIETY FOR 30DAYS, MAX DAILY DOSE: 2 TABS aspirin 81 mg EC tablet Take 1 tablet (81 mg total) by mouth. atorvastatin (LIPITOR) 40 mg tablet Take 1 tablet (40 mg total) by mouth 1 (one) time each day. CALCIUM CARBONATE-VITAMIN D3 ORAL Take by mouth daily. - Oral donepeziL (ARICEPT) 5 mg tablet DULoxetine (CYMBALTA) [address] capsule Take 1 capsule (60 mg total) by mouth 1 (one) time each day. mirtazapine (REMERON) 15 mg tablet Take 1 tablet (15 mg total) by mouth 1 (one) time each day. MULTIVITAMIN ORAL 1 tab qd - Oral ALLERGIES: Allergies Allergen Reactions Penicillins Hives PHYSICAL EXAM: Visit Vitals BP 114/58 Pulse 80 Ht 1.727 m (68 ) Wt 55.4 kg (122 lb 3.2 oz) BMI 18.58 kg/m?? OB Status Postmenopausal Smoking Status Never BSA 1.66 m?? EYES: PERRL, conjunctiva and sclera normal NOSE/SINUS: negative MOUTH/THROAT: no erythema or exudates NECK: negative HEART: regular rate, regular rhythm and no murmur LUNG: clear to auscultation LYMPH NODES: grossly normal ABDOMEN: Bowel sounds normoactive, no bruits, soft, non-tender, without organomegaly or palpable masses EXTREMITIES: No edema bilaterally. NEURO: Awake, alert and oriented x 3 SKIN: negative Assessment & Plan Mild Alzheimer's dementia with mood disturbance, unspecified timing of dementia onset (CMS/[facility]) For underlying dementia, she is currently donepezil and follow-up with neurology. Anxiety Extensive counseling done today. I did encourage her to seek out therapy. After extensive discussion, she is agreeable to to do more walks which she states helps with her anxiety. Will monitor thyroid levels. Orders: Thyroid stimulating hormone with reflex to free t4 and free t3; Future Hyperlipidemia, unspecified hyperlipidemia type Follow low-cholesterol diet. Continue atorvastatin. Orders: Lipid panel with reflex to direct LDL; Future Comprehensive metabolic panel; Future Ascending aorta dilatation (CMS/HCC) Echo ordered to follow-up on ascending aorta dilatation. Orders: Transthoracic echocardiogram (TTE) complete with PRN contrast, bubble, strain, and 3D order panel; Future Today's documentation was made using voice recognition software.This note may contain grammatical errors secondary to this software. documented in this encounter Plan of Treatment Upcoming Encounters Date Type Department Care Team (Late st Contact Info) Description 07/21/2024 3:30 PM EDT Ancillary Procedure [facility] [address] [place] [address] 09/10/2024 1:00 PM EDT Office Visit Internal Medicine - [address] [phone] Vivek Robledo MD [address] [place] [address] 10/21/2024 1:00 PM EDT Appointment Radiology Department - [address] [address] Scheduled Orders Name Type Priority Associated Diagnoses Order Schedule Transthoracic echocardiogram (TTE) complete with PRN contrast, bubble, strain, and 3D order panel Echocardiography Routine Ascending aorta dilatation (CMS/HCC) 1 Occurrences starting 05/12/2024 until 05/12/2025 documented as of this encounter Results * Thyroid stimulating hormone with reflex to free t4 and free t3 (05/13/2024 9:52 AM EST) TSH 2.09 0.40 - 4.00 mcIU/mL LAB CHEMISTRY METHOD 05/13/2024 12:43 PM EST [facility] Blood Venous blood specimen / Unknown Venipuncture / Unknown 05/13/2024 9:52 AM EST 05/13/2024 9:52 AM EST Vivek Robledo MD LAB BLOOD ORDERAB LES [facility] [address] [place] [address], [place] [phone] * (ABNORMAL) Comprehensive metabolic panel (05/13/2024 9:52 AM EST) Sodium 141 133 - 145 mmol/L LAB CHEMISTRY METHOD 05/13/2024 1:05 PM [facility] Potassium 4.1 3.5 - 5.5 mmol/L LAB CHEMISTRY METHOD 05/13/2024 1:05 PM [facility] Chloride 104 96 - 110 mmol/L LAB CHEMISTRY METHOD 05/13/2024 1:05 PM [facility] CO2 34(H) 21 - 32 mmol/L LAB CHEMISTRY METHOD 05/13/2024 1:05 PM [facility] Anion Gap 3 3 - 11 LAB CHEMISTRY METHOD 05/13/2024 1:05 PM [facility] Glucose 95 70 - 100 mg/dL LAB CHEMISTRY METHOD 05/13/2024 1:05 PM [facility] BUN 20 5 - 25 mg/dL LAB CHEMISTRY METHOD 05/13/2024 1:05 PM [facility] Creatinine 0.67 0.50 - 1.10 mg/dL LAB CHEMISTRY METHOD 05/13/2024 1:05 PM [facility] eGFR 94 >=60 mL/min/1. 73m2 LAB CHEMISTRY METHOD 05/13/2024 1:05 PM [facility] Comment:Calculation based on the??Chronic Kidney Disease Epidemiology Collaboration (CKD-EPI) equation refit??without adjustment for race. BUN/Creatinine Ratio 29.9 LAB CHEMISTRY METHOD 05/13/2024 1:05 PM [facility] Calcium 9.2 8.5 - 10.5 mg/dL LAB CHEMISTRY METHOD 05/13/2024 1:05 PM [facility] AST (SGOT) 27 10 - 42 unit/L LAB CHEMISTRY METHOD 05/13/2024 1:05 PM [facility] ALT (SGPT) 38 10 - 60 unit/L LAB CHEMISTRY METHOD 05/13/2024 1:05 PM [facility] Alkaline Phosphatase 74 42 - 121 unit/L LAB CHEMISTRY METHOD 05/13/2024 1:05 PM [facility] Total Protein 6.9 6.0 - 8.0 g/dL LAB CHEMISTRY METHOD 05/13/2024 1:05 PM [facility] Albumin 3.9 3.2 - 5.0 g/dL LAB CHEMISTRY METHOD 05/13/2024 1:05 PM [facility] Total Bilirubin 0.7 0.0 - 1.4 mg/dL LAB CHEMISTRY METHOD 05/13/2024 1:05 PM [facility] Blood Venous blood specimen / Unknown Venipuncture / Unknown 05/13/2024 9:52 AM EST 05/13/2024 9:52 AM EST Vivek Robledo MD LAB BLOOD ORDERAB LES [facility] [address] [place] [address], * Lipid panel with reflex to direct LDL (05/13/2024 9:52 AM EST) Cholesterol 173 0 - 200 mg/dL LAB CHEMISTRY METHOD 05/13/2024 1:08 PM [facility] Triglycerides 36 0 - 150 mg/dL LAB CHEMISTRY METHOD 05/13/2024 1:08 PM [facility] HDL 87 >=40 mg/dL LAB CHEMISTRY METHOD 05/13/2024 1:08 PM EST [facility] LDL Calculated 79 0 - 100 mg/dL LAB CHEMISTRY METHOD 05/13/2024 1:08 PM EST [facility] VLDL Cholesterol Jacoby 7.2 mg/dL LAB CHEMISTRY METHOD 05/13/2024 1:08 PM EST [facility] Non HDL Chol. (LDL+VLDL) 86 <145 mg/dL LAB CHEMISTRY METHOD 05/13/2024 1:08 PM [facility] Chol/HDL Ratio 2.0 0.0 - 4.4 LAB CHEMISTRY METHOD 05/13/2024 1:08 PM EST [facility] Blood Venous blood specimen / Unknown Venipuncture / Unknown 05/13/2024 9:52 AM EST 05/13/2024 9:52 AM EST Vivek Robledo MD LAB BLOOD ORDERAB LES Performing Organization Address City/State/[facility] Co de Phone Number [facility] [address] [place] [address], documented in this encounter Visit Diagnoses Diagnosis Mild Alzheimer's dementia with mood disturbance, unspecified timing of dementia onset (CMS/HCC)- Primary Anxiety Anxiety state, unspecified Hyperlipidemia, unspecified hyperlipidemia type Ascending aorta dilatation ([facility]) Thoracic aneurysm without mention of rupture Encounter for screening mammogram for breast cancer documented in this encounter Discontinued Medications Medication Sig Discontinue Reason Start Date End Da te albuterol HFA (PROAIR HFA ; PROVENTIL HFA ; VENTOLIN HFA) 90 mcg/actuation inhaler Take 2 puffs by mouth. Discontinued by another clinician 10/28/2015 05/12/2024 omeprazole (PriLOSEC) [address] capsule TAKE 1 CAPSULE BY MOUTH EVERY DAY IN THE MORNING BEFORE BREAKFAST 06/03/2023 05/12/2024 ondansetron (ZOFRAN) 4 mg tablet Take 1 tablet (4 mg total) by mouth. 09/07/2022 05/12/2024 omega-3 fatty acids 1,000 mg capsule Take by mouth daily. - Oral 05/12/2024 documented as of this encounter Historical Medications * This list may reflect changes made after this encounter. Medication Sig Dispensed Refills Start Date End Date DULoxetine (CYMBALTA) [address] capsule Take 1 capsule (60 mg total) by mouth 1 (one) time each day. 02/22/2024 added in this encounter Care Teams Work Car Operator Relationship Specialty Start Date End Date Vivek Robledo MD [address] [place] [address] PCP - General Internal Medicine 03/15/20 documented as of this encounter
--- OUTSIDE RECORDS SUMMARY | 2024-05-27 13:20 | XMS_ITS | Clinical Summary ---
Author Organization [facility] Address [address] [place] [address] Care Team Providers Care Ux Ui Designer Name Role Phone Vivek Robledo MD Primary Care Provider [phone] [phone] Allergies Active Allergy Reactions Criticality Noted Date Comments Penicillin V Hives 05/30/2005 Medications Medication Sig Dispensed Refills Start Date End Date Status Calcium Carbonate-Vitamin D 500-125 MG-UNIT TABS Take by mouth. 0 Active albuterol 108 (90 Base) MCG/ACT inhaler Take 2 puffs by mouth. 0 10/28/2015 Active alendronate (FOSAMAX) tablet 70 mg Take 1 tablet by mouth every 7 days. 0 09/07/2020 Active lamoTRIgine (LaMICtal) 100 MG tablet Take 100 mg by mouth 2 (two) times a day. 0 12/26/2020 Active [place]-3 Fatty Acids (Fish Oil) 1000 MG CAPS Take by mouth. 0 Active Active Problems Problem Noted Date Diagnosed Date Osteopenia of hip 01/13/2019 Overview: 01/2019 30% major Fx risk, hip neck quite low density. Alendronate started. Family history of bicuspid aortic valve 11/21/19 19 Anosmia 10/28/2015 History of wheezing 10/28/2015 Abnormal CXR 10/07/2007 Malaise and fatigue 10/21/2006 Depressive disorder 05/30/2005 Genital herpes 05/30/2005 Overview: IMO update Social History Tobacco Use Types Packs/Day Years Used Date Smoking Tobacco: Never Smokeless Tobacco: Never Alcohol Use Standard Drinks/Week Comments Never 0 (1 standard drink = 0.6 oz pur e alcohol) Sex and Gender Information Value Date Recorded Sex Assigned at Not on file Gender Identity Not on file Sexual Orientation Not on file Last Filed Vital Signs Vital Sign Reading Time Taken Comments Blood Pressure 118/61 03/09/2021 2:26 PM EDT Pulse 82 03/09/2021 2:26 PM EDT Temperature 37.1 ??C (98.7 ??F) 03/09/2021 2:26 PM ED T Respiratory Rate - - Oxygen Saturation 100% 03/09/2021 2:26 PM EDT Inhaled Oxygen Concentration - - Weight 54.9 kg (121 lb) 03/09/2021 2:26 PM EDT Height 172.7 cm (5' 8 ) 03/09/2021 2:26 PM EDT Body Mass Index 18.4 03/09/2021 2:26 PM EDT Plan of Treatment Health Maintenance Due Date Last Done Comments Hepatitis C Screening 1955 COVID-19 Vaccine (#1) 03/24/1954 Depression Screening 1965 Preventative Health Evaluation 09/22/1971 Colon Cancer Screening (Colonoscopy) 1998 Breast Cancer Screening (Mammogram) 09/22/2003 Shingrix-Zoster Vaccine (1 o f 2) 09/22/2003 Fall Risk Assessment 2018 Osteoporosis Screening (DEXA Scan) 2018 DTap / Tdap / Td (2 - Td or Tdap) 11/26/2018 11/26/2008 Influenza Vaccine (#1) 2024 0, 03/26/2017 RSV Adult > 60+ Yrs or (1 - 1-dose 75+ series) 2028 Pneumococcal Vaccine Completed 01/07/2020, 11/20/2018 Hepatitis B Vaccines Aged Out No long er eligible based on patient's age to complete this topic RSV Ped < 20 months Aged Out No longe r eligible based on patient's age to complete this topic Care Teams Ux Ui Designer Relationship Specialty Start Date End Date Vivek Robledo MD [address] [place] [address] PCP - General Internal Medicine 02/10/21
== END 2024-05-27 12:07 | disposition home or self-care (01) ==
PROVIDERS: PCP Internal Medicine; Visit Provider Psychiatry & Neurology Neurology
DX: F03.A3 Unspecified dementia, mild, with mood disturbance (principal); F32.89 Other specified depressive episodes; F41.9 Anxiety disorder, unspecified
CPT/HCPCS: 99214; G2211

== ENCOUNTER → 2024-05-27 11:36 | Outpatient (BNVA) | payer MEDICARE, OTHER, SELFPAY | PROVIDERS: PCP Internal Medicine; Visit Provider Psychiatry & Neurology Neurology | DX: F03.A3 Unspecified dementia, mild, with mood disturbance (principal); F32.89 Other specified depressive episodes; F41.9 Anxiety disorder, unspecified | CPT/HCPCS: 99212 ==

== ENCOUNTER 2024-07-02 11:20 | Outpatient (REF) | payer MEDICARE, OTHER, SELFPAY ==
--- OUTSIDE RECORDS SUMMARY | 2024-07-02 13:45 | XMS_ITS | Encounter Summary ---
Author Organization [facility] Address [address] [place] [address] Care Team Providers Care Business Support Assistant Name Role Phone Vivek Robledo MD Primary Care Provider [phone] [phone] Reason for Referral * Imaging (Routine) - Pending Review Specialty Diagnoses / Procedures Referred By Contac t Referred To Contact Radiology Diagnoses Unspecified dementia, mild, with mood disturbance (CMS/HCC) Procedures PET CT Limited Area Initial Joaquina Rios MD [address] [place] [address] Phone: tel: [facility] Referral ID Status Reason Start Date Expiration Date V isits Requested Visits Authorized [id number] Pending Review 06/10/2024 06/10/2025 1 1 Reason for Visit * Imaging (Routine) - Pending Review Specialty Diagnoses / Procedures Referred By Contac t Referred To Contact Radiology Diagnoses Unspecified dementia, mild, with mood disturbance (CMS/HCC) Procedures PET CT Limited Area Initial Joaquina Rios MD [address] [place] [address] Phone: tel: [facility] Referral ID Status Reason Start Date Expiration Date V isits Requested Visits Authorized [id number] Pending Review 06/10/2024 06/10/2025 1 1 Encounter Details Date Type Department Care Team (Latest Contact Info) Description 06/17/2024 8:35 AM EST - 06/17/2024 11:59 PM EST Hospital Encounter [facility] PET Scan [address] [place] [address] Unspecified dementia, mild, with mood disturbance (CMS/HCC) Discharge Disposition: Home or Self Care Social History Tobacco Use Types Packs/Day Years Used Date Smoking Tobacco: Never Smokeless Tobacco: Never Alcohol Use Standard Drinks/Week Comments Yes 0 (1 standard drink = 0.6 oz pur e alcohol) Comments No Sex and Gender Information Value Date Recorded Sex Assigned at Female 06/16/2024 10:52 AM EST Legal Sex Female 1:51 PM EST Gender Identity Not on file Sexual Orientation Straight 06/16/2024 10 :52 AM EST documented as of this encounter Medications at Time of Discharge alendronate (FOSAMAX) 70 mg tablet Take 1 tablet (70 mg total) by mouth every 7 (seven) days. 09/07/2020 ALPRAZolam (XANAX) 0.25 mg tablet TAEK 1 TABLET BY MOUTH 2 TIMES A DAY NEEDED FOR ANXIETY FOR 30 DAYS, MAX DAILY DOSE: 2 TABS 11/16/2022 aspirin 81 mg EC tablet Take 1 tablet (81 mg total) by mouth. 03/04/2023 atorvastatin (LIPITOR) 40 mg tablet Take 1 tablet (40 mg total) by mouth 1 (one) time each day. 08/26/2023 CALCIUM CARBONATE-VITAMIN D3 ORAL Take by mouth daily. - Oral donepeziL (ARICEPT) 5 mg tablet 11/29/2022 DULoxetine (CYMBALTA) [address] capsule Take 1 capsule (60 mg total) by mouth 1 (one) time each day. 02/22/2024 mirtazapine (REMERON) 15 mg tablet Take 1 tablet (15 mg total) by mouth 1 (one) time each day. 07/25/2021 MULTIVITAMIN ORAL 1 tab qd - Oral documented as of this encounter Discharge Disposition Disposition Code Departure Means Destination Home or Self Care documented in this encounter Plan of Treatment Upcoming Encounters Date Type Department Care Team (Late st Contact Info) Description 07/21/2024 3:30 PM EDT Ancillary Procedure [facility] - [address] [place] [phone] 09/10/2024 1:00 PM EDT Office Visit Internal Medicine - [address] [place] [address] Vivek Robledo MD [address] [place] [address] 10/21/2024 1:00 PM EDT Appointment Radiology Department [address] [address] Pending Results Name Type Priority Associated Diagnoses Date /Time PET CT Limited Area Initial Imaging Routine Unspecified dementia, mild, with mood disturbance (CMS/HCC) 06/17/2024 2:15 PM EST Scheduled Orders Name Type Priority Associated Diagnoses Orde r Schedule PET CT Limited Area Initial Imaging Routine Unspecified dementia, mild, with mood disturbance (CMS/HCC) Once for 1 Occurrences starting 06/17/2024 until 06/17/2024 documented as of this encounter Visit Diagnoses Diagnosis Unspecified dementia, mild, with mood disturbance (CMS/HCC) Encounter for screening mammogram for breast cancer documented in this encounter Administered Medications Inactive Administered Medications - up to 3 most recent administrations Medication Order MAR Action Action Date Dose Rate Site F-18 florbetapir radio-isotope injection 9.4 millicurie 9.4 millicurie, intravenous, Once in imaging, Starting on Sat06/17/24 at 1300, For 1 dose Given 06/17/2024 12:50 PM EST 9.4 millicuries Left Antecubital documented in this encounter Orders Medications Ordered That [place] ht Not Have Been Administered Count Last Ordered Date First Ordered Date F-18 florbetapir radio-isoto pe injection 9.4 millicurie 1 06/17/2024 documented in this encounter Care Teams Business Support Assistant Relationship Specialty Start Date End Date Vivek Robledo MD [address] [place] [address] PCP - General Internal Medicine 03/15/20 documented as of this encounter
--- OUTSIDE RECORDS SUMMARY | 2024-07-02 13:46 | XMS_ITS | Clinical Summary ---
Author Organization [facility] Address [address] [place] [address] Care Team Providers Care Survey Methodologist Name Role Phone Vivek Robledo MD Primary Care Provider [phone] [phone] Allergies Active Allergy Reactions Criticality Noted Date [...] (two) times a day. 0 12/26/2020 Active [place]-3 Fatty Acids (Fish Oil) 1000 MG CAPS [...] age to complete this topic Care Teams Survey Methodologist Relationship Specialty Start Date End Date Vivek Robledo MD [address] [place] [address] PCP - General Internal Medicine 02/10/21
--- OUTSIDE RECORDS SUMMARY | 2024-07-02 13:46 | XMS_ITS | Clinical Summary ---
Author Organization [place] [address] [address] [facility] Building Address [address] [place], [place] [address], [place] [address] Phone Care Team Providers Care Java [id number] Application Developer Name Role Phone Vivek Robledo MD Primary Care Provider [phone] Allergies Active Allergy Reactions Criticality Noted Date Comments Penicillins Hives 05/30/2005 Medications alendronate (FOSAMAX) 70 mg tablet Take 1 [...] (one) time each day. 07/25/2021 Active CALCIUM CARBONATE-VITAM IN D3 ORAL Take by mouth daily. - Oral Active MULTIVITAMIN ORAL 1 tab qd - Oral Active DULoxetine (CYMBALTA) [address] capsule Take 1 capsule (60 mg total) by mouth 1 (one) time each day. 02/22/2024 Active Active Problems Problem Noted Date Diagnosed [...] Encounters Date Type Department Care Team Description 06/17/2024 8:35 AM EST - 06/17/2024 11:59 PM EST Hospital Encounter [facility] PET Scan [address] [place] [address] Unspecified dementia, mild, with mood disturbance (CMS/HCC) Discharge Disposition: Home or Self Care 05/12/2024 3:30 PM EST Office Visit Internal Medicine - [facility] [address] [place] [address] Vivek Robledo MD Mild Alzheimer's dementia with mood disturbance, unspecified timing of dementia onset ([facility]) (Primary Dx); Anxiety; Hyperlipidemia, unspecified hyperlipidemia type; Ascending aorta dilatation ([facility]) from Last 3 Months Immunizations Name Administration [...] LAPAROSCOPY, CHOLECYSTECTOMY OTHER SURGICAL HISTORY 1989?? PROCEDURE: W[place] DILATION & CURETTAGE DX&/THER NONOBSTETRIC COLONOSCOPY 09/07/15 PROCEDURE: HISTORICAL COLONOSCOPY; COMMENT: tics; repeat in ten yrs Medical History Medical History Date Comments Other specified personal his tory presenting hazards to health(V15.89) late 1969 DX:Other specifie d personal history presenting hazards to health(V15.89); COMMENT: had cryosurgery Obstructive airway disease ([facility]) 10/07/2007 DX:Obstructive airway disease ([facility]) Family history of bicuspid a ortic valve 11/20/2018 DX:Family history of bicuspi d aortic valve Anxiety 10/26/2021 DX:Anxiety 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 ([facility]) 05/10/2022 DX:Mild Alzheimer's dementia with mood disturbance ([facility]) Bilateral carotid artery stenosis 06/04/2022 DX:Bilateral carotid [...] Orientation Straight 06/16/2024 10 :52 AM EST Obstetrics History Last Filed Vital Signs Vital [...] Description 07/21/2024 3:30 PM EDT Ancillary Procedure [facility] [address] [place] [address] 09/10/2024 1:00 PM EDT Office Visit Internal Medicine - [address] [phone] Vivek Robledo MD [address] [place] [address] 10/21/2024 1:00 PM EDT Appointment Radiology Department - [address] [phone] Health Maintenance Due Date Last Done Comments Zoster Vaccines (1 of 2) 09/22/2003 RSV Immunization Patients 60+ Years Old (1 - Risk 60-74 years 1-dose series) 2013 Falls Risk Assessment 04/14/2022 Social Influencers of Health Screening 04/14/2022 COVID-19 Vaccine (4 - season) 2024 03/25/2021, 07/28/2020, 07/07/2020 Influenza Vaccine (#1) 2024 , 02/11/2020, 03/12/2019, [...] Hepatitis C Screening Completed 09/30/2002 Pneumococcal Vaccine: 50+ Years Completed 01/07/2020, 11/20/2018 HIB Vaccines Aged [...] patient's age to complete this topic Meningococcal B Vacine Aged Out No lo nger eligible based on patient's age to complete [...] LAB CHEMISTRY METHOD 05/13/2024 12:43 PM EST [facility] Blood Venous blood specimen / Unknown Venipuncture / Unknown 05/13/2024 9:52 AM EST 05/13/2024 9:52 AM EST Vivek Robledo MD LAB BLOOD ORDERABLES Aditi l Result [facility] [address] [place] [address], [place] [phone] * Lipid panel with reflex to direct LDL (05/13/2024 9:52 AM EST) Cholesterol 173 0 - 200 mg/dL LAB CHEMISTRY METHOD 05/13/2024 1:08 PM [facility] Triglycerides 36 0 - 150 mg/dL LAB CHEMISTRY METHOD 05/13/2024 1:08 PM [facility] HDL 87 >=40 mg/dL LAB CHEMISTRY METHOD 05/13/2024 1:08 PM [facility] LDL Calculated 79 0 - 100 mg/dL LAB CHEMISTRY METHOD 05/13/2024 1:08 PM [facility] VLDL Cholesterol Jacoby 7.2 mg/dL LAB CHEMISTRY METHOD 05/13/2024 1:08 PM [facility] Non HDL Chol. (LDL+VLDL) 86 <145 mg/dL LAB CHEMISTRY METHOD 05/13/2024 1:08 PM [facility] Chol/HDL Ratio 2.0 0.0 - 4.4 LAB CHEMISTRY METHOD 05/13/2024 1:08 PM [facility] Blood Venous blood specimen / Unknown Venipuncture / Unknown 05/13/2024 9:52 AM EST 05/13/2024 9:52 AM EST Vivek Robledo MD LAB BLOOD ORDERABLES Aditi l Result [facility] [address] [place] [address], [place] [phone] * (ABNORMAL) Comprehensive metabolic panel (05/13/2024 9:52 AM EST) Sodium 141 133 - 145 mmol/L LAB CHEMISTRY METHOD 05/13/2024 1:05 PM [facility] Potassium 4.1 3.5 - 5.5 mmol/L LAB CHEMISTRY METHOD 05/13/2024 1:05 PM [facility] Chloride 104 96 - 110 mmol/L LAB CHEMISTRY METHOD 05/13/2024 1:05 PM [facility] CO2 34(H) 21 - 32 mmol/L LAB CHEMISTRY METHOD 05/13/2024 1:05 PM [facility] Anion Gap 3 3 - 11 LAB CHEMISTRY METHOD 05/13/2024 1:05 PM [facility] Glucose 95 70 - 100 mg/dL LAB CHEMISTRY METHOD 05/13/2024 1:05 PM [facility] BUN 20 5 - 25 mg/dL LAB CHEMISTRY METHOD 05/13/2024 1:05 PM [facility] Creatinine 0.67 0.50 - 1.10 mg/dL LAB CHEMISTRY METHOD 05/13/2024 1:05 PM [facility] eGFR 94 >=60 mL/min/1. 73m2 LAB CHEMISTRY METHOD 05/13/2024 1:05 PM [facility] Comment:Calculation based on the??Chronic Kidney Disease Epidemiology Collaboration (CKD-EPI) equation refit??without adjustment for race. BUN/Creatinine Ratio 29.9 LAB CHEMISTRY METHOD 05/13/2024 1:05 PM [facility] Calcium 9.2 8.5 - 10.5 mg/dL LAB CHEMISTRY METHOD 05/13/2024 1:05 PM [facility] AST (SGOT) 27 10 - 42 unit/L LAB CHEMISTRY METHOD 05/13/2024 1:05 PM [facility] ALT (SGPT) 38 10 - 60 unit/L LAB CHEMISTRY METHOD 05/13/2024 1:05 PM [facility] Alkaline Phosphatase 74 42 - 121 unit/L LAB CHEMISTRY METHOD 05/13/2024 1:05 PM EST [facility] Total Protein 6.9 6.0 - 8.0 g/dL LAB CHEMISTRY METHOD 05/13/2024 1:05 PM [facility] Albumin 3.9 3.2 - 5.0 g/dL LAB CHEMISTRY METHOD 05/13/2024 1:05 PM [facility] Total Bilirubin 0.7 0.0 - 1.4 mg/dL LAB CHEMISTRY METHOD 05/13/2024 1:05 PM EST [facility] Blood Venous blood specimen / Unknown Venipuncture / Unknown 05/13/2024 9:52 AM EST 05/13/2024 9:52 AM EST Vivek Robledo MD LAB BLOOD ORDERABLES Aditi l Result [facility] [address] [place] [address], [place] [phone] * Depression Screening (01/21/2024) Depression Screening abstracted Historical Provider HEALTH MAINTENANCE Final Result * SCREENING MAMMOGRAPHY BI 2-VIEW BREAST INC [...] Recommendation: Routine annual screening mammography is recommended us Vivek Robledo MD IMG XR PROCEDURES Final R esult * DXA BONE DENSITY STUDY 1+ SITS [...] (World Health Organization Fracture Risk Assessment) The [facility] Department of Internal Medicine recommends [...] alternative screening schedule based on sergo Dunaway., [facility] May 24, 2011 for patients with osteopenia [...] (World Health Organization Fracture Risk Assessment) The [facility] Department of Internal Medicine recommendsusing [...] alternative screening schedule based on ser[facility] Dunaway., [facility] for patients with osteopenia (based on hip BMD T-score) is as follows: * advanced osteopenia (T scores -2.00 to -2.49), BMD testing every year * moderate osteopenia (T scores -1.50 to -1.99), BMD testing every 5years mild osteopenia or normal BMD (T scores -1.50 and higher), BMD testingevery 15 years Vivek Robledo MD [facility] DXA PROCEDURES Final Result * Cervical Cancer Screening: HPV (09/13/2020) Pathologist [facility] Cervical Cancer Screening: HPV abstracted, negative Historical Provider HEALTH MAINTENANCE Final Result * Colonoscopy (09/07/2015) Pathologist [facility] Colonoscopy no interpretation , abstracted Anatomical Region Laterality Modality Other Historical Provider HEALTH MAINTENANCE Final Result * Hepatitis C Screening (09/30/2002) Pathologist [facility] Hepatitis C Screening negative Historical Provider HEALTH MAINTENANCE Final Result from Last 3 Months or Most Recently Relevant to Health Maintenance Insurance [facility] MEDICARE Care Teams Java J2Ee Application Developer Relationship Specialty Start Date End Date Vivek Robledo MD [address] [place] [id number] PCP - General Internal Medicine 03/15/20
== END 2024-07-02 11:21 | disposition home or self-care (01) ==
LOC: CF 11:20
DX: Z13.89 Encounter for screening for other disorder (principal)

== ENCOUNTER 2024-11-25 11:23 | Outpatient (AMB) | payer MEDICARE, OTHER, SELFPAY ==
--- NOTE | 2024-11-25 11:21 | A.OFFVIS_ITS ---
Vital Signs 11/25/24 11:22 Height 5 ft 8 in Weight 125 lb BMI 19.0 BP 122/70 Blood Pressure Location Rt brachial Position Sitting Pulse 78 Pulse Source Pulse Oximeter Pulse Oximetry (%) 98 Oxygen Delivery Method Room Air Intake Visit Reasons: 6mon follow-up Shipping Manager Required: No Accompanied by: Spouse Allergies penicillin G Allergy (Mild, Verified 11/25/24 11:22) Unknown Medication List - Last Reconciled 11/25/24 by Joaquina Rios MD alprazolam (Xanax) 0.25 mg PO BID PRN 30 days MDD 2 tabs donepezil 10 mg PO BEDTIME duloxetine 60 mg PO DAILY mirtazapine 30 mg PO BEDTIME omeprazole 20 mg PO DAILY ondansetron HCl 4 mg PO Q8H PRN HPI Comments Details: 67y/o left handed female comes for follow up of memory impairment and anxiety.Her memory and mood are stable .she is seeing a psychiatric prescriber at [facility].Lexapro was d/c ed and she was started on duloxetine. Her neuropsyhc eval was c/w early Dementia and poorly controlled mood.she reports increased anxiety and depression. Her lexapro was increased to 30mg qd, has a therapist .Sleep is good with mirtazepine.she talks to a therapist. No thoughts of hurting herself she could not tolerate memantine Previous History- The patient noticed increase in forgetfulness with short term memory issues about 6mths to 1 year. It increases her anxiety which further worsens her cognition. she forgets conversations, misplace things, repeat questions, forgets appointments, uses a calender. she has trouble with computers. Her driving is Ok but anxious.she got lost once trying to find her friends house but as per her she was always bad with directions. 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 She thinks her mood worsened since then. She also had unexplained weight loss for more than 6 mths. she had nausea which is better. She was diagnosed with depression in 2003 when her father . In Mar 2020 her mood worsened and also had severe anxiety.. [facility] Medical History Shingles Malaise and fatigue Seasonal allergies Asthma Arthritis Anosmia Osteopenia Anxiety Depression Surgical History Hx of colonoscopy Hx of cholecystectomy Family History Father Arthritis, rheumatoid Mother Epilepsy Aneurysm Family/Other Migraine Family/Other Migraine Social History Household Members: Spouse Alcohol intake: never Patient Tobacco Use Status: Never used Tobacco service: No Current occupational status: retired Cognitive needs: No Hearing needs: No Vision needs: Yes Physical Exam Vital Signs: Last Vital Signs Pulse 78 11/25/24 11:22 BP 122/70 11/25/24 11:22 Pulse Ox 98 11/25/24 11:22 Oxygen Delivery Method Room Air 11/25/24 11:22 BMI result Body Mass Index 19.0 Const General: cooperative, healthy appearing, comfortable and no acute distress Nutritional Appearance: thin Orientation/consciousness: patient oriented x3 Limitations: no limitations HEENT Head: Yes normal to inspection Face and sinus: Yes normal facial exam Neuro Other: Mild left UE cog wheel rigidity General: patient oriented x3 and moves all extremities Cranial nerves: Yes Normal facial strength present and Yes Midline tongue present Cognition (Neuro): normal cognition Gait exam (Neuro): Other gait observations present (mild stoop and decreased arm swing - L>r) Motor exam (neuro): 5/5 motor strength present throughout Orientation What is the (year) (season) (date) (day) (month)?: year, season, date, day and month Where are we (state) (county) (town or city) (hospital) (floor)?: state, county, town or city, hospital/clinic and floor Registration Name of 3 unrelated objects clearly and slowly, then ask patient to repeat all 3 of them. (1st repeat determines score. Make sure they can repeat all three): object 1, object 2 and object 3 Attention & Calculation (CHOOSE ONE) Spell WORLD backwards (DLROW): 4 letters Recall Ask patient to repeat the 3 items from question #3.: object 1, object 2 and object 3 Language Show patient a wristwatch & ask what it is. Repeat for pencil.: watch and pencil Ask the patient to repeat the phrase 'No ifs, ands, or buts' after you.: correct Ask the patient to 'take a piece of paper with their right hand' 'fold paper in half' 'place paper on floor': take paper in right hand, fold paper in half and place paper on floor Print the sentence 'CLOSE YOUR EYES' on a piece. If patient actually closes eyes then score.: followed written direction Give patient a blank piece of paper & ask to write a sentence. Score if it contains a noun & verb.: sentence contains subject and verb Ask patient to copy figure of intersecting pentagons exactly. Score if all 10 angles & 2 intersects are included.: all 10 angles present & 2 are intersected Score Score: 29 Assessment & Plan Assessment & Plan (1) Alzheimer's dementia without behavioral disturbance: Comment: MMSE 29/30 Positive AMyloid PET Code(s): G30.9 - Alzheimer's disease, unspecified; F02.80 - Dementia in other diseases classified elsewhere, unspecified severity, without behavioral disturbance, psychotic disturbance, mood disturbance, and anxiety Category: Medical (2) Depression: Code(s): F32.A - Depression, unspecified Category: Medical Qualifiers: Depression Type: other depression Qualified Code(s): F32.89 - Other specified depressive episodes (3) Anxiety: Code(s): F41.9 - Anxiety disorder, unspecified Category: Medical Plan She will be a good candidate for Anti AMyloid Therapy - [place] - will get prior auth and schedule treatment. Check B12 TSH CBC CMP APOE4 Duloxetine 60mg qd mirtazepine 30mg qhs Xanax 0.25 mg as needed Psychiatry -PCP- seeing a therapist Melatonin 3-5 mg qhs Donepezil 10mg qd Orders: Orders Vitamin B12 and Folate Today F02.80 - Dementia in other diseases classified elsewhere, unspecified severity, without behavioral disturbance, psychotic disturbance, mood disturbance, and anxiety, G30.9 - Alzheimer's disease, unspecified Complete Blood Count Auto Diff Today F02.80 - Dementia in other diseases classified elsewhere, unspecified severity, without behavioral disturbance, psychotic disturbance, mood disturbance, and anxiety, G30.9 - Alzheimer's disease, unspecified Comprehensive Met. Panel Today F02.80 - Dementia in other diseases classified elsewhere, unspecified severity, without behavioral disturbance, psychotic disturbance, mood disturbance, and anxiety, G30.9 - Alzheimer's disease, unspecified Other Ref Test - Misc Today F02.80 - Dementia in other diseases classified elsewhere, unspecified severity, without behavioral disturbance, psychotic disturbance, mood disturbance, and anxiety, G30.9 - Alzheimer's disease, unspecified MR head/brain wo con Today F02.80 - Dementia in other diseases classified elsewhere, unspecified severity, without behavioral disturbance, psychotic disturbance, mood disturbance, and anxiety, G30.9 - Alzheimer's disease, unspecified TSH reflex Free T4 Today F02.80 - Dementia in other diseases classified elsewhere, unspecified severity, without behavioral disturbance, psychotic disturbance, mood disturbance, and anxiety, G30.9 - Alzheimer's disease, un specified Coding Level of Care Code Est Pt Level 4 (42813) Complex EM visit Add On G2211 Diagnoses Alzheimer's dementia without behavioral disturbance G30.9; F02.80 Other depression F32.89 Depression Type: other depression Anxiety F41.9
[2024-11-25 11:22] VITALS: BP 122/70; PULSE 78; O2SAT 98; BMI 19.0
--- OUTSIDE RECORDS SUMMARY | 2024-11-25 12:23 | XMS_ITS | Clinical Summary ---
Author Organization [place] [address] Brad Replaced by [facility] Building Address [address] [place] [address] Phone Care Team Providers Care Gut Dropper Name Role Phone Vivek Robledo MD Primary Care Provider +1 [phone] Allergies Active Allergy Reactions Criticality Noted Date Comments Penicillins Hives 05/30/2005 Medications alendronate (FOSAMAX) 70 mg tablet Take 1 tablet (70 mg total) by mouth every 7 (seven) days. 09/07/2020 Active ALPRAZolam (XANAX) 0.25 mg tablet TAEK [...] 1 (one) time each day. 02/22/2024 Active atorvastatin (LIPITOR) 40 mg tablet TAKE 1 TABLET BY MOUTH EVERY DAY 90 tablet 1 08/26/2024 Active Active Problems Problem Noted Date Diagnosed Date Dysarthria 08/15/2023 Overview (12/26/2023): TRANSIENT Hyperlipidemia 12/04/2022 Assessment & Plan (05/12/2024 6:37 PM EST): Follow low-cholesterol diet. Continue atorvastatin. 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 ([facility] V24, [facility] V28) 05/10/2022 Assessment & Plan (05/12/2024 6:37 PM [...] Encounters Date Type Department Care Team Description 10/21/2024 12:43 PM EDT - 10/21/2024 11:59 PM EDT Hospital Encounter Radiology Department - [address] [id number] Encounter for screening mammogram for breast cancer Discharge Disposition: Home or Self Care from Last 3 Months Immunizations Name Administration [...] LAPAROSCOPY, CHOLECYSTECTOMY OTHER SURGICAL HISTORY 1989?? PROCEDURE: [place] DILATION & CURETTAGE DX&/THER NONOBSTETRIC COLONOSCOPY 09/07/15 PROCEDURE: HISTORICAL COLONOSCOPY; COMMENT: tics; repeat in ten yrs Medical History Medical History Date Comments Other specified personal his tory presenting hazards to health(V15.89) late 1969 DX:Other specifie d personal history presenting hazards to health(V15.89); COMMENT: had cryosurgery Obstructive airway disease ( [facility] V24, [facility] V28) 10/07/2007 DX:Obstructive airway diseas e ([facility]) Family history of bicuspid a ortic valve 11/20/2018 DX:Family history of bicuspi d aortic valve Anxiety 10/26/2021 DX:Anxiety 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 ([facility] V24, [facility] V28) 05/10/2022 DX:Mild Alzheim er's dementia with mood disturbance ([facility]) Bilateral carotid artery stenosis 06/04/2022 DX:Bilateral carotid [...] Sister 3 Alive Son Tee Alive adopted, Lesa y Social History Tobacco Use Types Packs/Day [...] 06/16/2024 10 :52 AM EST Obstetrics History Para Term AB IAB SAB Ectopic Multiple Livin g Live Births Date Outcome GA Total Labor Labor//3rd Weight Sex Type Anes PTL Amada A1 A5 Name Clin Term Last Filed Vital Signs Vital Sign Reading Time Taken Comments Blood Pressure 111/67 07/21/2024 3:57 PM EDT Pulse 80 05/12/2024 2:46 PM EST Temperature - - Respiratory Rate - - Oxygen Saturation - - Inhaled Oxygen Concentration - - Weight 55.3 kg (122 lb) 07/21/2024 3:57 PM EDT Height 172.7 cm (5' 8 ) 07/21/2024 3:57 PM EDT Body Mass Index 18.55 07/21/2024 3:57 PM EDT Plan of Treatment Upcoming Encounters Date Type Department Care Team (Late st Contact Info) Description 01/13/2025 1:00 PM EDT [facility] [address] [place] [address] Vivek Robledo MD [address] [place] [id number] Health Maintenance Due Date Last Done Comments Zoster Vaccines (1 of 2) 09/22/2003 Falls Risk Assessment 04/14/2022 Social Influencers of Health Screening 04/14/2022 COVID-19 Vaccine ( season) 2024 03/25/2021, 07/28/2020, 07/07/2020 Depression Screening 05/06/2024 01/21/2024 Influenza Vaccine (#1) 2025 , 02/11/2020, 03/12/2019, Additional history exists Medicare Annual Wellness Visit 01/20/2025 01/21/2024 Colorectal Cancer Screening: Colonoscopy 09/06/2025 09/07/2015, 05/10/2004 Cervical Cancer Screening: HPV 09/13/2025 09/13/2020 Breast Cancer Screening 10/21/2026 10/22/19 25, 10/16/2023, 10/16/2023, Additional history exists RSV Immunization Adult Patients (1 - 1-dose 75+ series) 2028 Cholesterol Screening (Lipid Panel) 05/13/2029 05/13/2024, 08/15/2023 [...] age to complete this topic Meningococcal B Vaccine Aged Out No l onger eligible based on patient's age to complete this topic RSV Immunization Patients Under 20 months Aged Out No longer eligible based on patient's age to complete this topic Varicella Vaccines Aged Out No longer eligible based on patient's age to complete this topic Procedures Procedure Name Priority Date/Time Associated Diagnosis Comments MG MAMMO DIGITAL SCREENING W JERAMIE BILAT Routine 10/21/2024 1:06 PM EDT Encounter for screening mammogram for breast cancer LIPID PANEL WITH REFLEX TO DIRECT LDL Routine 05/13/2024 9:52 AM EST Hyperlipidemia, unspecified hyperlipidemia type DEPRESSION SCREENING Routine 01/21/2024 DXA BONE DENSITY STUDY 1+ SITS AXIAL SKEL Routine 02/15/2022 1:38 PM EDT Other specified disorders of bone density and structure, unspecified site HPV Routine 09/13/2020 COLONOSCOPY Routine 09/07/2015 HEPATITIS C SCREENING Routine 09/30/2002 from Last 3 Months or Most Recently Relevant to Health Maintenance Results * MG Mammo Digital Screening w Jeramie bilat (10/21/2024 1:06 PM EDT) Anatomical Region Laterality Modality Breast Bilateral Mammography 10/22/2024 8:59 AM EDT Impressions 10/22/2024 8:59 AM EDT No mammographic evidence of malignancy. BREAST DENSITY: B - There are scattered areas of fibroglandular density. BI-RADS CATEGORY: 1 - NEGATIVE RECOMMENDATION: Screening bilateral mammogram is recommended in 1 year. MAMMO LOCATION: [facility], [address] [place] [address], [id number], . -------- FINAL REPORT -------- Dictated By: Rajni Cartwright Dictated Date: 10/22/2024 08:59 ET Assigned Physician: Rajni Cartwright Reviewed and Electronically Signed By: Rajni Cartwright Signed Date: 10/22/2024 08:59 ET Workstation ID: [id number] Transcribed By: Self Edit Transcribed Date: 10/22/2024 08:59 ET Narrative 10/22/2024 8:59 AM EDT EXAM: Screening Mammogram CLINICAL: 69 years old, Female, routine annual exam. COMPARISON: 10/16/2023 and as far back as 09/28/2020 TECHNIQUE: Bilateral MLO and CC views were obtained digitally with 3-D mammogram (digital breast tomosynthesis). Computer-aided detection was utilized in evaluation of this exam (CAD). FINDINGS: No new suspicious mass, architectural distortion, or suspicious calcifications. Procedure Note Rajni Cartwright MD - 10/22/2024 EXAM: Screening Mammogram CLINICAL: 69 years old, Female, routine annual exam. COMPARISON: 10/16/2023 and as far back as 09/28/2020 TECHNIQUE: Bilateral MLO and CC views were obtained digitally with 3-Dmammogram (digital breast tomosynthesis). Computer-aided detection wasutilized in evaluation of this exam (CAD). FINDINGS: No new suspicious mass, architectural distortion, or suspiciouscalcifications. IMPRESSION: No mammographic evidence of malignancy. BREAST DENSITY: B - There are scattered areas of fibroglandular density. BI-RADS CATEGORY: 1 - NEGATIVE RECOMMENDATION: Screening bilateral mammogram is recommended in 1 year. MAMMO LOCATION: [facility], [address] [place] [address], [address], . -------- FINAL REPORT -------- Dictated By: Rajni Cartwright Dictated Date: 10/22/2024 08:59 ET Assigned Physician: Rajni Cartwright Reviewed and Electronically Signed By: Rajni Cartwright Signed Date: 10/22/2024 08:59 ET Workstation ID: [id number] Transcribed By: Self Edit Transcribed Date: 10/22/2024 08:59 ET us Vivek Robledo MD IMG BI PROCEDURES Final R esult * Lipid panel with reflex to direct LDL (05/13/2024 9:52 AM EST) Cholesterol 173 0 - 200 mg/dL LAB CHEMISTRY METHOD 05/13/2024 1:08 PM EST [facility] Triglycerides 36 0 - 150 mg/dL LAB CHEMISTRY METHOD 05/13/2024 1:08 PM EST [facility] HDL 87 >=40 mg/dL LAB CHEMISTRY METHOD 05/13/2024 1:08 PM EST [facility] LDL Calculated 79 0 - 100 mg/dL LAB CHEMISTRY METHOD 05/13/2024 1:08 PM EST [facility] VLDL Cholesterol Jacoby 7.2 mg/dL LAB CHEMISTRY METHOD 05/13/2024 1:08 PM [facility] Non HDL Chol. (LDL+VLDL) 86 <145 mg/dL LAB CHEMISTRY METHOD 05/13/2024 1:08 PM [facility] Chol/HDL Ratio 2.0 0.0 - 4.4 LAB CHEMISTRY METHOD 05/13/2024 1:08 PM [facility] Blood Venous blood specimen / Unknown Venipuncture / Unknown 05/13/2024 9:52 AM EST 05/13/2024 9:52 AM EST Vivek Robledo MD LAB BLOOD ORDERABLES Aditi l Result [facility] [address] [place] [address], [place] [phone] * Depression Screening (01/21/2024) [facility] Depression Screening abstracted [facility] Provider HEALTH MAINTENANCE Final Result * DXA BONE DENSITY STUDY 1+ SITS AXIAL SKEL (02/15/2022 1:38 PM EDT) Anatomical Region Laterality Modality Bone Densitometr y 10/26/2021 9:27 AM EDT Narrative 02/15/2022 3:18 PM EDT BONE DENSITY (DEXA) Lumbar Spine T-score is [...] (World Health Organization Fracture Risk Assessment) [facility] Department of Internal Medicine recommends using National [...] alternative screening schedule based on sergo Dunaway., [facility] May 24, 2011 for patients [...] (World Health Organization Fracture Risk Assessment) [facility] Department of Internal Medicine recommendsusing National Osteoporosis [...] FRAX. Optional alternative screening schedule based on divine Dunaway al., [facility] for patients with osteopenia (based on hip BMD T-score) is as follows: * advanced osteopenia (T scores -2.00 to -2.49), BMD testing every year * moderate osteopenia (T scores -1.50 to -1.99), BMD testing every 5years mild osteopenia or normal BMD (T scores -1.50 and higher), BMD testingevery 15 years Vivek Robledo MD IM DXA PROCEDURES Final Result * Cervical Cancer Screening: HPV (09/13/2020) [facility] Cervical Cancer Screening: HPV abstracted, negative Historical Provider HEALTH MAINTENANCE Final Result * Colonoscopy (09/07/2015) [facility] Colonoscopy no interpretation , abstracted Anatomical Region Laterality Modality Other Historical Provider HEALTH MAINTENANCE Final Result * Hepatitis C Screening (09/30/2002) Hepatitis C Screening negative Historical Provider HEALTH MAINTENANCE Final Result from Last 3 Months or Most Recently Relevant to Health Maintenance Insurance [facility] MEDICARE Care Teams Gut Dropper Relationship Specialty Start Date End Date Vivek Robledo MD [address] [place] [address] PCP - General Internal Medicine 03/15/20
--- OUTSIDE RECORDS SUMMARY | 2024-11-25 12:23 | XMS_ITS | Clinical Summary ---
Author Organization [facility] Address [address] [place] [address] Care Team Providers Care Tailor Apprentice Name Role Phone Vivek Robledo MD Primary Care Provider [phone] [phone] Allergies Active Allergy Reactions Criticality Noted Date [...] (two) times a day. 0 12/26/2020 Active [place]-3 Fatty Acids (Fish Oil) 1000 MG CAPS [...] 82 03/09/2021 2:26 PM EDT Temperature 37.1 C (98.7 F) 03/09/2021 2:26 PM EDT Respiratory Rate - - Oxygen Saturation 100% [...] or Tdap) 11/26/2018 11/26/2008 Influenza Vaccine (#1) 2025 0, 03/26/2017 RSV Adult > 60+ Yrs or (1 - 1-dose 75+ series) 2028 Pneumococcal Vaccine Completed 01/07/2020, 11/20/2018 Hepatitis B Vaccines Aged Out No long er eligible based on patient's age to complete this topic RSV Ped < 20 months Aged Out No longe r eligible based on patient's age to complete this topic Care Teams Tailor Apprentice Relationship Specialty Start Date End Date Vivek Robledo MD [address] [place] [address] PCP - General Internal Medicine 02/10/21
--- OUTSIDE RECORDS SUMMARY | 2024-11-25 12:23 | XMS_ITS ---
Author Name [facility] Organization Unknown Care Team Organization Name Specialty Phone Email Start Date End Da te [facility] Vivek Robledo Primary Care 03/13/2022 12/23/2023
== END 2024-11-25 13:13 | disposition home or self-care (01) ==
LOC: HO.HSMS 11:24
PROVIDERS: PCP Internal Medicine; Visit Provider Psychiatry & Neurology Neurology
DX: G30.9 Alzheimer's disease, unspecified (principal); F02.80 Dementia in other diseases classified elsewhere, unspecified severity, without behavioral disturbance, psychotic disturbance, mood disturbance, and anxiety; F32.89 Other specified depressive episodes; F41.9 Anxiety disorder, unspecified
CPT/HCPCS: 99214; G2211

== ENCOUNTER 2024-11-25 11:23 | Outpatient (REF) | payer MEDICARE, OTHER, SELFPAY ==
[2024-11-25 17:41] LABS: MANUAL DIFF FLAG NO
[2024-11-25 17:45] LABS: Hematocrit 38.9 % (37.0-47.0); Hemoglobin 12.7 g/dl (12.0-16.0); Imm Gran Abs Auto 0.02 X10*3/uL (0.00-0.03); Imm Gran Pct Auto 0.3 % (0.0-0.4); Lymphocytes Absolute Auto 1.3 X10*3/uL (1.2-4.9); Mean Corpuscular HGB Conc 32.6 g/dl (31.0-35.0); Mean Corpuscular Hemoglobin 30.1 pg (27.0-33.0); Mean Corpuscular Volume 92.2 fL (80.0-98.0); NRBC Abs Auto 0.000 X10*3/uL (0.0-0.012); NRBC Pct Auto 0.0 /100WBC (0.0-0.2); Platelet Count 167 X10*3/uL (160-400); Red Blood Count 4.22 X10*6/uL (4.20-5.50); White Blood Count 6.5 X10*3/uL (4.8-10.8)
[2024-11-25 18:04] LABS: Alanine Aminotransferase 32 U/L (0-31); Albumin Level 4.5 g/dL (3.5-5.0); Alkaline Phosphatase 68 U/L (39-117); Anion Gap 9 (12-20); Aspartate Amino Transferase 37 U/L (5-31); Blood Urea Nitrogen 14 mg/dL (9-16); Calcium 9.2 mg/dL (8.4-10.2); Carbon Dioxide 29 mmol/L (22-29); Chloride 106 mmol/L (96-108); Estimated Glomerular Filt Rate > 60; Potassium 4.3 mmol/L (3.3-5.1); Sodium 140 mmol/L (135-145); Total Protein 7.1 g/dL (6.5-8.0)
[2024-11-25 18:31] LABS: Folate 14.0 ng/mL (> or = 4.0); Vitamin B12 711 pg/mL (200-900)
[2024-12-06 19:18] LABS: Apolipoprotein E Genotype E3/E4
== END 2024-11-25 11:24 | disposition home or self-care (01) ==
LOC: HO.HKASLDS 11:23
PROVIDERS: PCP Internal Medicine; Visit Provider Psychiatry & Neurology Neurology
DX: F32.89 Other specified depressive episodes (principal); G30.9 Alzheimer's disease, unspecified; F02.84 Dementia in other diseases classified elsewhere, unspecified severity, with anxiety; Z79.899 Other long term (current) drug therapy
CPT/HCPCS: 36415; 80053; 82542; 82607; 82746; 84443; 85025; 99212

== ENCOUNTER → 2024-12-14 07:56 | Outpatient (BNV) | payer MEDICARE, OTHER, SELFPAY | PROVIDERS: Visit Provider Radiology Diagnostic Radiology | DX: G30.9 Alzheimer's disease, unspecified (principal); R90.82 White matter disease, unspecified | CPT/HCPCS: 70551 ==

== ENCOUNTER 2024-12-14 07:59 | Outpatient (REF) | payer MEDICARE, OTHER, SELFPAY ==
--- NOTE | ~2024-12-14 | MR_ITS ---
EXAMINATION: MR BRAIN WITHOUT CONTRAST CLINICAL INFORMATION: Alzheimer's disease, unspecified. COMPARISON: None available. TECHNIQUE: MRI of the brain was obtained using routine sequences without contrast. FINDINGS: No restricted diffusion. No acute intracranial hemorrhage, mass effect, midline shift, hydrocephalus or herniation. Bilateral, multifocal, punctate subcortical deep white matter hyperintense T2 FLAIR signal involving centrum semiovale and fatima radiata and karla. Fuchs-white matter differentiation is normal. Flow-void signal within the main cerebral vessels is normal. Sellar/suprasellar region demonstrated no signal abnormality or gross masses. Craniocervical junction demonstrates normal position of the cerebellar tonsils. Prominence of the extra-axial CSF spaces cerebral sulci and ventricles involving the frontotemporal and to a lesser extent parietal. 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 Bifrontal temporal lobe atrophy. No acute findings. Electronically signed by: J Luis Moreno MD 12/14/2024 03:38 PM EDT
--- OUTSIDE RECORDS SUMMARY | 2024-12-14 08:02 | XMS_ITS | Clinical Summary ---
[facility] Organization [facility] Address [address] [place] [address] Care Team Providers Care Channel Specialist Name Role Phone Vivek Robledo MD Primary Care Provider +1 [phone] Allergies Active Allergy Reactions Criticality Noted Date [...] (two) times a day. 0 12/26/2020 Active [place]-3 Fatty Acids (Fish Oil) 1000 MG CAPS [...] age to complete this topic Care Teams Channel Specialist Relationship Specialty Start Date End Date Vivek Robledo MD [address] [place] [address] PCP - General Internal Medicine 02/10/21
--- OUTSIDE RECORDS SUMMARY | 2024-12-14 08:02 | XMS_ITS | Clinical Summary ---
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 PROCEDURE: [place] DILATION & CURETTAGE DX&/THER NONOBSTETRIC COLONOSCOPY 09/07/15 PROCEDURE: HISTORICAL COLONOSCOPY; COMMENT: tics; repeat in ten yrs Medical History Medical History Date Comments Other specified personal his tory presenting hazards to health(V15.89) late 1969 DX:Other specifie d personal history presenting hazards to health(V15.89); COMMENT: had cryosurgery Obstructive airway disease ( [facility] V24, [facility] V28) 10/07/2007 DX:Obstructive airway diseas e ([facility]) Family history of bicuspid a ortic valve 11/20/2018 DX:Family history of bicuspi d aortic valve Anxiety 10/26/2021 DX:Anxiety 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 ([facility] V24, [facility] V28) 05/10/2022 DX:Mild Alzheim er's dementia with mood disturbance ([facility]) Bilateral carotid artery stenosis 06/04/2022 DX:Bilateral carotid [...] PM EDT [facility] [address] [place] [address] Vivek Robledo MD [address] [place] [address] Health Maintenance Due Date Last Done Comments [...] Procedure Name Priority Date/Time Associated Diagnosis Comments EXTERNAL CLINICAL LAB 12/07/2024 EXTERNAL CLINICAL LAB 12/07/2024 MG MAMMO DIGITAL SCREENING W JERAMIE BILAT [...] Recently Relevant to Health Maintenance Results * External clinical lab (12/07/2024) Only the most recent of2 resultswithin the time period is included. us Provider [facility] LAB BLOOD ORDERABLES Fin al Result * MG Mammo Digital Screening w Jeramie bilat (10/21/2024 1:06 PM EDT) Anatomical Region Laterality Modality Breast Bilateral Mammography 10/22/2024 8:59 AM EDT Impressions 10/22/2024 8:59 AM EDT No mammographic evidence of malignancy. BREAST DENSITY: B - There are scattered areas of fibroglandular density. BI-RADS CATEGORY: 1 - NEGATIVE RECOMMENDATION: Screening bilateral mammogram is recommended in 1 year. MAMMO LOCATION: [facility], [address] [place] [address], [id number], . -------- FINAL REPORT -------- Dictated By: Rajni Cartwright Dictated Date: 10/22/2024 08:59 ET Assigned Physician: Rajni Cartwright Reviewed and Electronically Signed By: Rajni Cartwright Signed Date: 10/22/2024 08:59 ET Workstation ID: [id number] Transcribed By: Self Edit Transcribed Date: 10/22/2024 [...] is recommended in 1 year. MAMMO LOCATION: [facility], [address] [place] [address], [address], . -------- FINAL REPORT -------- Dictated By: Rajni Cartwright Dictated Date: 10/22/2024 08:59 ET Assigned Physician: Rajni Cartwright Reviewed and Electronically Signed By: Rajni Cartwright Signed Date: 10/22/2024 08:59 ET Workstation ID: [id number] Transcribed By: Self Edit Transcribed Date: 10/22/2024 [...] PM [facility] LDL Calculated 79 0 - 100 mg/dL LAB CHEMISTRY METHOD 05/13/2024 1:08 PM [facility] VLDL Cholesterol Jacoby 7.2 mg/dL LAB CHEMISTRY METHOD 05/13/2024 1:08 PM [facility] Non HDL Chol. (LDL+VLDL) 86 <145 mg/dL LAB CHEMISTRY METHOD 05/13/2024 1:08 PM [facility] Chol/HDL Ratio 2.0 0.0 - 4.4 LAB CHEMISTRY METHOD 05/13/2024 1:08 PM [facility] Blood Venous blood specimen / Unknown Venipuncture / Unknown 05/13/2024 9:52 AM EST 05/13/2024 9:52 AM EST Vivek Robledo MD LAB BLOOD ORDERABLES Aditi l Result [facility] [address] [place] [address], * Depression Screening (01/21/2024) Pathologist [facility] Depression Screening abstracted Historical Provider HEALTH MAINTENANCE Final Result * DXA [...] alternative screening schedule based on sergo Dunaway., [facility] May 24, 2011 for patients with [...] alternative screening schedule based on sergo Dunaway., [facility] for patients with osteopenia (based on hip BMD T-score) is as follows: * advanced osteopenia (T scores -2.00 to -2.49), BMD testing every year * moderate osteopenia (T scores -1.50 to -1.99), BMD testing every 5years mild osteopenia or normal BMD (T scores -1.50 and higher), BMD testingevery 15 years Vivek Robledo MD [facility] DXA PROCEDURES Final Result * Cervical Cancer Screening: HPV (09/13/2020) Pathologist [facility] Cervical Cancer Screening: HPV abstracted, negative Historical Provider HEALTH MAINTENANCE Final Result * Colonoscopy (09/07/2015) Pathologist [facility] Colonoscopy no interpretation , abstracted Anatomical Region Laterality Modality Other Historical Provider HEALTH MAINTENANCE Final Result * Hepatitis C Screening (09/30/2002) Pathologist [facility] Hepatitis C Screening negative Historical Provider HEALTH MAINTENANCE Final Result from Last 3 Months or Most Recently Relevant to Health Maintenance Insurance [facility] MEDICARE Care Teams Tuft Machine Operator Relationship Specialty Start Date End Date Vivek Robledo MD [address] [place] [id number] PCP - General Internal Medicine 03/15/20
== END 2024-12-14 08:00 | disposition home or self-care (01) ==
LOC: HO.MRI 07:59
PROVIDERS: Visit Provider Psychiatry & Neurology Neurology
DX: G30.9 Alzheimer's disease, unspecified (principal); F02.80 Dementia in other diseases classified elsewhere, unspecified severity, without behavioral disturbance, psychotic disturbance, mood disturbance, and anxiety
CPT/HCPCS: 70551

== ENCOUNTER → 2025-02-24 10:12 | Outpatient (BNV) | payer MEDICARE, OTHER, SELFPAY | PROVIDERS: PCP Internal Medicine; Visit Provider Radiology Diagnostic Radiology | DX: G30.9 Alzheimer's disease, unspecified (principal) | CPT/HCPCS: 70551 ==

== ENCOUNTER 2025-02-24 10:31 | Outpatient (REF) | payer MEDICARE, OTHER, SELFPAY ==
--- NOTE | ~2025-02-24 | MR_ITS ---
EXAMINATION: MR BRAIN WITHOUT CONTRAST CLINICAL INFORMATION: G30.9. Alzheimer's disease, unspecified. Patient on antiamyloid therapy. COMPARISON: December 14, 2024. TECHNIQUE: MRI of the brain was obtained using routine sequences without contrast. FINDINGS: No restricted diffusion. No acute intracranial hemorrhage, mass effect, midline shift, hydrocephalus or herniation. Bilateral, nonspecific multifocal punctate subcortical deep white matter hyperintense T2 FLAIR signal involving centrum semiovale and fatima radiata and karla. Prominence of the extra-axial CSF spaces cerebral sulci and ventricles involving mostly the frontotemporal lobes. Flow-void signal within the main cerebral vessels is normal. Sellar/suprasellar region demonstrated no signal abnormality or masses. Craniocervical junction is intact with normal position of the cerebellar tonsils. MR/MR head/brain wo con IMPRESSION: No parenchymal edema or acute intracranial hemorrhage, amyloid therapy related. No acute stroke/nonhemorrhagic ischemia. No change. Electronically signed by: J Luis Moreno MD 02/24/2025 11:30 AM EDT
--- OUTSIDE RECORDS SUMMARY | 2025-02-24 13:23 | XMS_ITS | Clinical Summary ---
Author Organization [address] [facility] Building Address [address] [place] [address] Phone Care Team Providers Care Almond Roaster Name Role Phone Andreia Nettles MD Primary Care Provider [phone] Allergies Active Allergy Reactions Criticality Noted Date [...] (12/26/2023): TRANSIENT Hyperlipidemia 12/04/2022 Assessment & Plan (01/13/2025 1:41 PM EDT): Follow low-cholesterol diet. Continue atorvastatin. Assessment & Plan (05/12/2024 6:37 PM EST): Follow low-cholesterol diet. Continue atorvastatin. 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 ([facility] V24, [facility] V28) 05/10/2022 Assessment & Plan (05/12/2024 6:37 [...] Encounters Date Type Department Care Team Description 01/21/2025 Telephone Internal Medicine [facility] [address] [facility] [place] [address] Jeaneth Zepeda RN 01/13/2025 1:00 PM EDT Office Visit [facility] [address] [facility] [place] [place] [address] Vivek Robledo MD Alzheimer disease ([facility] V24, [facility] V28) (Primary Dx); Hyperlipidemia, unspecified hyperlipidemia type; Screen for colon cancer from Last 3 Months Immunizations Immunization Administration Dates Next Due Influenza Quadravalent, MDCK [...] LAPAROSCOPY, CHOLECYSTECTOMY OTHER SURGICAL HISTORY 1989?? PROCEDURE: OK DILATION & CURETTAGE DX&/THER NONOBSTETRIC COLONOSCOPY 09/07/15 PROCEDURE: HISTORICAL COLONOSCOPY; COMMENT: tics; repeat in ten yrs Medical History Medical History Date Comments Other specified personal his tory presenting hazards to health(V15.89) late 1969 DX:Other specifie d personal history presenting hazards to health(V15.89); COMMENT: had cryosurgery Obstructive airway disease ( [facility] V24, [facility] V28) 10/07/2007 DX:Obstructive airway diseas e ([facility]) Family history of bicuspid a ortic valve 11/20/2018 DX:Family history of bicuspi d aortic valve Anxiety 10/26/2021 DX:Anxiety 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 ([facility] V24, [facility] V28) 05/10/2022 DX:Mild Alzheim er's dementia with mood disturbance ([facility]) Bilateral carotid artery stenosis 06/04/2022 DX:Bilateral carotid [...] SAB Ectopic Multiple Livin g Live Births 1 1 1 1 Date Outcome GA Total Labor Labor/2nd/3rd Weight Sex Type Anes PTL Amada A1 A5 Name Clin Term Last Filed Vital Signs Vital Sign Reading Time Taken Comments Blood Pressure 110/68 01/13/2025 1:01 PM EDT Pulse 76 01/13/2025 1:01 PM EDT Temperature - - Respiratory Rate - - Oxygen Saturation - - Inhaled Oxygen Concentration - - Weight 54.7 kg (120 lb 8 oz) 01/13/2025 1:01 PM EDT Height 172.7 cm (5' 8 ) 01/13/2025 1:01 PM EDT Body Mass Index 18.32 01/13/2025 1:01 PM EDT Plan of Treatment Upcoming Encounters Date Type Department Care Team (Late st Contact Info) Description 07/13/2025 3:00 PM EDT Office Visit Internal Medicine - [address] [phone] Ben Phillips NP [address] [place] [id number] Health Maintenance Due Date Last Done Comments Zoster Vaccines (1 of 2) 09/22/2003 Falls Risk Assessment 04/14/2022 Social Influencers of Health Screening 04/14/2022 Depression Screening 05/06/2024 01/21/2024 COVID-19 Vaccine (4 - season) 2025 03/25/2021, 07/28/2020, 07/07/2020 Influenza Vaccine (#1) 2025 , 02/11/2020, 03/12/2019, Additional history exists Medicare Annual Wellness Visit 01/20/2025 01/21/2024 Colorectal Cancer Screening: Colonoscopy 09/06/2025 09/07/2015, 05/10/2004 Cervical Cancer Screening: HPV 09/13/2025 09/13/2020 Breast Cancer Screening 10/21/2026 10/22/19, 10/16/2023, 10/16/2023, Additional history exists RSV Immunization [...] is recommended in 1 year. MAMMO LOCATION: [facility], [address] [place] [address], [id number], . -------- FINAL REPORT -------- Dictated By: Rajni Cartwright Dictated Date: 10/22/2024 08:59 ET Assigned Physician: Rajni Cartwright Reviewed and Electronically Signed By: Rajni Cartwright Signed Date: 10/22/2024 08:59 ET Workstation ID: [id number] Transcribed By: Self Edit Transcribed Date: 10/22/2024 [...] is recommended in 1 year. MAMMO LOCATION: [facility], [address] [place] [address], [address], . -------- FINAL REPORT -------- Dictated By: Rajni Cartwright Dictated Date: 10/22/2024 08:59 ET Assigned Physician: Rajni Cartwright Reviewed and Electronically Signed By: Rajni Cartwright Signed Date: 10/22/2024 08:59 ET Workstation ID: [id number] Transcribed By: Self Edit Transcribed Date: 10/22/2024 08:59 ET Vivek Robledo MD IMG BI PROCEDURES Final R esult * Lipid panel with reflex to direct LDL (05/13/2024 9:52 AM EST) Cholesterol 173 0 - 200 mg/dL LAB CHEMISTRY METHOD 05/13/2024 1:08 PM EST [facility] Triglycerides 36 0 - 150 mg/dL LAB CHEMISTRY METHOD 05/13/2024 1:08 PM EST [facility] HDL 87 >=40 mg/dL LAB CHEMISTRY METHOD 05/13/2024 1:08 PM EST [facility] LDL Calculated 79 0 - 100 mg/dL LAB CHEMISTRY METHOD 05/13/2024 1:08 PM EST [facility] VLDL Cholesterol Jacoby 7.2 mg/dL LAB CHEMISTRY METHOD 05/13/2024 1:08 PM EST [facility] Non HDL Chol. (LDL+VLDL) 86 <145 mg/dL LAB CHEMISTRY METHOD 05/13/2024 1:08 PM EST [facility] Chol/HDL Ratio 2.0 0.0 - 4.4 LAB CHEMISTRY METHOD 05/13/2024 1:08 PM EST [facility] Blood Venous blood specimen / Unknown Venipuncture / Unknown 05/13/2024 9:52 AM EST 05/13/2024 9:52 AM EST Vivek Robledo MD LAB BLOOD ORDERABLES Aditi l Result [facility] [address] [place] [address], [place] [phone] * Depression Screening (01/21/2024) Depression Screening abstracted [...] (World Health Organization Fracture Risk Assessment) [facility] Department of Internal Medicine recommends [...] alternative screening schedule based on sergo Dunaway., [facility] May 24, 2011 for patients with osteopenia [...] (World Health Organization Fracture Risk Assessment) [facility] Department of Internal Medicine recommendsusing [...] alternative screening schedule based on sergo Dunaway., [place] 2011 for patients with osteopenia (based on hip BMD T-score) is as follows: * advanced osteopenia (T scores -2.00 to -2.49), BMD testing every year * moderate osteopenia (T scores -1.50 to -1.99), BMD testing every 5years mild osteopenia or normal BMD (T scores -1.50 and higher), BMD testingevery 15 years Vivek Robledo MD IMG DXA PROCEDURES Final Result * Cervical Cancer Screening: HPV (09/13/2020) [facility] Cervical Cancer Screening: HPV abstracted, negative Result [facility] Historical Provider HEALTH MAINTENANCE Final Result * Colonoscopy (09/07/2015) [facility] Colonoscopy no interpretation , abstracted Anatomical Region Laterality Modality Other Historical Provider HEALTH MAINTENANCE Final Result * Hepatitis C Screening (09/30/2002) [facility] Hepatitis C Screening negative Historical Provider HEALTH MAINTENANCE Final Result from Last 3 Months or Most Recently Relevant to Health Maintenance Insurance [facility] MEDICARE Care Teams Almond Roaster Relationship Specialty Start Date End Date Andreia Nettles MD [address] [place] [address] PCP - General Internal Medicine 01/13/25
--- OUTSIDE RECORDS SUMMARY | 2025-02-24 13:23 | XMS_ITS | Clinical Summary ---
Author Organization [facility] Address [address] [place] [address] Care Team Providers Care Forklift Truck Operator Name Role Phone Vivek Robledo MD Primary Care Provider [phone] Allergies Active Allergy Reactions Criticality Noted Date [...] (two) times a day. 0 12/26/2020 Active [place]-3 Fatty Acids (Fish Oil) 1000 MG CAPS [...] age to complete this topic Care Teams Forklift Truck Operator Relationship Specialty Start Date End Date Vivek Robledo MD [address] [place] [address] PCP - General Internal Medicine 02/10/21
== END 2025-02-24 10:32 | disposition home or self-care (01) ==
LOC: HO.MRI 10:31
PROVIDERS: PCP Internal Medicine; Visit Provider Psychiatry & Neurology Neurology
DX: G30.9 Alzheimer's disease, unspecified (principal); F02.80 Dementia in other diseases classified elsewhere, unspecified severity, without behavioral disturbance, psychotic disturbance, mood disturbance, and anxiety
CPT/HCPCS: 70551

== ENCOUNTER 2025-03-17 14:59 | Outpatient (REF) | payer MEDICARE, OTHER, SELFPAY ==
--- NOTE | ~2025-03-17 | MR_ITS ---
EXAMINATION: MR BRAIN WITHOUT CONTRAST CLINICAL INFORMATION: G30.9 - Alzheimer's disease, unspecified. Patient on anti-amyloid therapy. COMPARISON: Brain MRI on February 24, 2025 and December 14, 2024 TECHNIQUE: MRI of the brain was obtained using routine sequences without contrast. FINDINGS: Motion degrades some sequences. Brain parenchyma: No shift of midline structures. No evidence of acute infarct, mass lesion or ellen parenchymal hemorrhage. Scattered and confluent T2/FLAIR hyperintense foci in the white matter bilateral cerebral hemispheres, mildly more pronounced in the left occipital lobe, are similar to prior studies as far back as December 2024. Single focal area of susceptibility artifact in the left occipital lobe (10:36/64) is new from previous examinations. Ventricles/extra-axial spaces: Prominence of the extra-axial CSF spaces, brain sulci and ventricles, mostly in the frontal temporal lobes, is similar to prior examinations. No hydrocephalus. No extra-axial fluid collection. Extracranial structures: Arterial flow voids in the skull base are preserved. Bilateral orbital globes are unremarkable. Mucosal thickening of the paranasal sinuses. Bilateral mastoid air cells are clear. MR/MR head/brain wo con IMPRESSION: In comparison to prior studies from February 24, 2025 and December 14, 2024: 1. New single focus suspicious of microhemorrhage in the left occipital lobe, possibly related to the amyloid therapy. 2. No findings to suggest interval development of parenchymal edema or sulcal effusion. Electronically signed by: Donta Kelly MD 03/17/2025 05:13 PM [facility]
--- OUTSIDE RECORDS SUMMARY | 2025-03-17 18:21 | XMS_ITS | Clinical Summary ---
Author Organization [facility] Address [address] [place] [address] Care Team Providers Care Rim Turning Finisher Name Role Phone Vivek Robledo MD Primary Care Provider [phone] Allergies Active Allergy Reactions Criticality Noted Date [...] (two) times a day. 0 12/26/2020 Active [place]-3 Fatty Acids (Fish Oil) 1000 MG CAPS [...] age to complete this topic Care Teams Rim Turning Finisher Relationship Specialty Start Date End Date Vivek Robledo MD [address] [place] [address] PCP - General Internal Medicine 02/10/21
== END 2025-03-17 15:00 | disposition home or self-care (01) ==
LOC: HO.MRI 14:59
PROVIDERS: PCP Internal Medicine; Visit Provider Psychiatry & Neurology Neurology
DX: G30.9 Alzheimer's disease, unspecified (principal); F02.80 Dementia in other diseases classified elsewhere, unspecified severity, without behavioral disturbance, psychotic disturbance, mood disturbance, and anxiety
CPT/HCPCS: 70551

== ENCOUNTER → 2025-03-17 15:04 | Outpatient (BNV) | payer MEDICARE, OTHER, SELFPAY | PROVIDERS: PCP Internal Medicine; Visit Provider Radiology Body Imaging | DX: G30.9 Alzheimer's disease, unspecified (principal) | CPT/HCPCS: 70551 ==

== ENCOUNTER 2025-03-29 11:30 | Outpatient (AMB) | payer MEDICARE, OTHER, SELFPAY ==
[2025-03-29 11:31] VITALS: BP 114/70; PULSE 77; O2SAT 98; BMI 18.0
--- NOTE | 2025-03-29 11:31 | A.OFFVIS_ITS ---
Vital Signs 03/29/25 11:31 Height 5 ft 8 in Weight 118 lb 4 oz BMI 18.0 BP 114/70 Blood Pressure Location Rt brachial Position Sitting Pulse 77 Pulse Source Pulse Oximeter Pulse Oximetry (%) 98 Oxygen Delivery Method Room Air Intake Visit Reasons: 4mnth follow up Intake Note: Follow up Alzheimer's dementia without behavioral disturbance, Depression and Anxiety Ore Digger Required: No Accompanied by: Spouse, Daughter and Deonte Allergies penicillin G Allergy (Mild, Verified 03/29/25 11:31) Unknown HPI Comments Details: 69y/o left handed female comes for follow up of memory impairment and anxiety.she started on Kisunla - and had 3 infsuions- 3rd was on Mar 03 and her Mar 17 2025 MRI showed a New single focus suspicious of microhemorrhage in the left occipital lobe, possibly related to the amyloid therapy. 2. No findings to suggest interval development of parenchymal edema or sulcal effusion. Her memory and mood are stable .she is seeing a psychiatric prescriber at [facility].. Her neuropsyhc eval was c/w early Dementia and poorly controlled mood.she reports increased anxiety and depression. Her lexapro was increased to 30mg qd, has a therapist .Sleep is good with mirtazepine.she talks to a therapist. No thoughts of hurting herself Previous History- The patient noticed increase in forgetfulness with short term memory issues about 6mths to 1 year. It increases her anxiety which further worsens her cognition. she forgets conversations, misplace things, repeat questions, forgets appointments, uses a calender. she has trouble with computers. Her driving is Ok but anxious.she got lost once trying to find her friends house but as per her she was always bad with directions. 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 She thinks her mood worsened since then. She also had unexplained weight loss for more than 6 mths. she had nausea which is better. She was diagnosed with depression in 2003 when her father . In Mar 2020 her mood worsened and also had severe anxiety.. [facility] Medical History (Updated 03/29/25 @ 12:04 by Joaquina Rios MD) Silent micro-hemorrhage of brain Alzheimer's dementia without behavioral disturbance Shingles Malaise and fatigue Seasonal allergies Asthma Arthritis Anosmia Osteopenia Anxiety Depression Surgical History Hx of colonoscopy Hx of cholecystectomy Family History Father Arthritis, rheumatoid Mother Epilepsy Aneurysm Family/Other Migraine Family/Other Migraine Social History Household Members: Spouse Alcohol intake: never Patient Tobacco Use Status: Never used Tobacco service: No Current occupational status: retired Cognitive needs: No Hearing needs: No Vision needs: Yes Physical Exam Vital Signs: Last Vital Signs Pulse 77 03/29/25 11:31 BP 114/70 03/29/25 11:31 Pulse Ox 98 03/29/25 11:31 Oxygen Delivery Method Room Air 03/29/25 11:31 BMI result Body Mass Index 18.0 Const General: cooperative, healthy appearing, comfortable and no acute distress Nutritional Appearance: thin Orientation/consciousness: patient oriented x3 Limitations: no limitations HEENT Head: Yes normal to inspection Face and sinus: Yes normal facial exam Neuro Other: Mild left UE cog wheel rigidity General: patient oriented x3 and moves all extremities Cranial nerves: Yes Normal facial strength present and Yes Midline tongue present Cognition (Neuro): normal cognition Gait exam (Neuro): Other gait observations present (mild stoop and decreased arm swing - L>r) Motor exam (neuro): 5/5 motor strength present throughout Assessment & Plan Assessment & Plan (1) Alzheimer's dementia without behavioral disturbance: Comment: MMSE 29/30 Positive AMyloid PET Code(s): G30.9 - Alzheimer's disease, unspecified; F02.80 - Dementia in other diseases classified elsewhere, unspecified severity, without behavioral disturbance, p sychotic disturbance, mood disturbance, and anxiety Category: Medical (2) Depression: Code(s): F32.A - Depression, unspecified Category: Medical Qualifiers: Depression Type: other depression Qualified Code(s): F32.89 - Other specified depressive episodes (3) Anxiety: Code(s): F41.9 - Anxiety disorder, unspecified Category: Medical (4) Silent micro-hemorrhage of brain: Comment: left occiptal lobe suspicious Code(s): I61.8 - Other nontraumatic intracerebral hemorrhage Category: Medical Plan Anti AMyloid Therapy - [place] -Mar 31 3rd infusion. 1st 350mg 2 nd 700mg Mar 31 - no increase - will do 700 mg The MRI from Mar 172024 after Mar 03 infusion New single focus suspicious of microhemorrhage in the left occipital lobe, possibly related to the amyloid therapy. 2. No findings to suggest interval development of parenchymal edema or sulcal effusion. Duloxetine 60mg qd mirtazepine 30mg qhs Xanax 0.25 mg a sneeded Psychiatry -PCP- seeing a therapist Donepezil 10mg qd Orders: Orders MR head/brain wo con 04/14/25 F02.80 - Dementia in other diseases classified elsewhere, unspecified severity, without behavioral disturbance, psychotic d isturbance, mood disturbance, and anxiety, G30.9 - Alzheimer's disease, unspecified Coding Level of Care Code Complex visit Add On G2211 Diagnoses Alzheimer's dementia without behavioral disturbance G30.9; F02.80 Other depression F32.89 Depression Type: other depression Anxiety F41.9 Silent micro-hemorrhage of brain I61.8
--- OUTSIDE RECORDS SUMMARY | 2025-03-29 15:15 | XMS_ITS | Clinical Summary ---
Author Organization [facility] Address [address] [place] [address] Care Team Providers Care Transplant Immunologist Name Role Phone Vivek Robledo MD Primary Care Provider [phone] Allergies Active Allergy Reactions Criticality Noted Date [...] (two) times a day. 0 12/26/2020 Active [place]-3 Fatty Acids (Fish Oil) 1000 MG CAPS [...] age to complete this topic Care Teams Transplant Immunologist Relationship Specialty Start Date End Date Vivek Robledo MD [address] [place] [address] PCP - General Internal Medicine 02/10/21
--- OUTSIDE RECORDS SUMMARY | 2025-03-29 15:15 | XMS_ITS | Encounter Summary ---
Author Organization [facility] Address [address] [place] [address] Care Team Providers Care Radiology Practitioner Assistant Name Role Phone Andreia Nettles MD Primary Care Provider [phone] Encounter Details Date Type Department Care Team (Late st Contact Info) Description 03/18/2025 Results Follow-Up Internal Medicine - [address] [phone] Madhuri Martins MA Social History Tobacco Use Types Packs/Day Years [...] AM EST documented as of this encounter Plan of Treatment Upcoming Encounters Date Type Department Care Team (Late st Contact Info) Description 07/13/2025 3:00 PM EDT Office Visit Internal Medicine - [address] [phone] Ben Pihllips NP [address] [place] [address] documented as of this encounter Visit Diagnoses Not on filedocumented in this encounter Care Teams Radiology Practitioner Assistant Relationship Specialty Start Date End Date Andreia Nettles MD [address] [place] [address] PCP - General Internal Medicine 01/13/25 documented as of this encounter
--- OUTSIDE RECORDS SUMMARY | 2025-03-29 15:15 | XMS_ITS | Clinical Summary ---
Author Organization [address] [facility] Building Address [address] [place] [address] Phone Care Team Providers Care Game Designer/Creative Director Name Role Phone Andreia Nettles MD Primary Care Provider Allergies Active Allergy Reactions Criticality Noted Date [...] 02/22/2024 Active atorvastatin (LIPITOR) 40 mg tablet Take 1 tablet (40 mg total) by mouth 1 (one) time each day. 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 ([facility] V24, [facility] V28) 05/10/2022 Assessment & Plan (05/12/2024 6:37 [...] Encounters Date Type Department Care Team Description 03/18/2025 Results Follow-Up Internal Medicine - [facility] [address] [place], [place] [address] [phone] Madhuri Martins MA 01/21/2025 [facility] [place] [phone] Jeaneth Zepeda RN 01/13/2025 1:00 PM EDT [facility] [address] [facility] [place], [place] [phone] Vivek Robledo MD Alzheimer disease ([facility] V24, [facility] V28) (Primary Dx); Hyperlipidemia, unspecified hyperlipidemia type; [...] LAPAROSCOPY, CHOLECYSTECTOMY OTHER SURGICAL HISTORY 1989?? PROCEDURE: SD DILATION & CURETTAGE DX&/THER NONOBSTETRIC COLONOSCOPY 09/07/15 PROCEDURE: HISTORICAL COLONOSCOPY; COMMENT: tics; repeat in ten yrs Medical History Medical History Date Comments Other specified personal his tory presenting hazards to health(V15.89) late 1969 DX:Other specifie d personal history presenting hazards to health(V15.89); COMMENT: had cryosurgery Obstructive airway disease ( [facility] V24, [facility] V28) 10/07/2007 DX:Obstructive airway diseas e ([facility]) Family history of bicuspid a ortic valve 11/20/2018 DX:Family history of bicuspi d aortic valve Anxiety 10/26/2021 DX:Anxiety 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 ([facility] V24, [facility] V28) 05/10/2022 DX:Mild Alzheim er's dementia with mood disturbance ([facility]) Bilateral carotid artery stenosis 06/04/2022 DX:Bilateral carotid [...] Office Visit Internal Medicine - [facility] [address] [facility] [place] [address] Ben Phillips, BIT TRIPOLER [address] [place] [address] Health Maintenance Due Date Last Done Comments Zoster Vaccines (1 of 2) 09/22/2003 Falls Risk Assessment 04/14/2022 Social Influencers of Health Screening 04/14/2022 Depression Screening 05/06/2024 01/21/2024 COVID-19 Vaccine ( - season) 2025 03/25/2021, 07/28/2020, 07/07/2020 Influenza [...] Name Priority Date/Time Associated Diagnosis Comments EXTERNAL MRI REPORT 03/17/2025 EXTERNAL MRI REPORT 03/17/2025 EXTERNAL MRI REPORT 02/24/2025 EXTERNAL MRI REPORT 02/24/2025 MG MAMMO DIGITAL SCREENING W JERAMIE BILAT [...] Relevant to Health Maintenance Results * External MRI Report (03/17/2025) Only the most recent of4 resultswithin the time period is included. Anatomical Region Laterality Modality Magnetic Resonan ce us Provider [facility] IMG MRI PROCEDURES Final Result * MG Mammo Digital Screening w Jeramie bilat (10/21/2024 1:06 PM EDT) Anatomical Region Laterality Modality Breast Bilateral Mammography 10/22/2024 8:59 AM EDT Impressions 10/22/2024 8:59 AM EDT No mammographic evidence of malignancy. BREAST DENSITY: B - There are scattered areas of fibroglandular density. BI-RADS CATEGORY: 1 - NEGATIVE RECOMMENDATION: Screening bilateral mammogram is recommended in 1 year. MAMMO LOCATION: [facility], [address] [place] [address], [address], . -------- FINAL REPORT -------- Dictated By: Rajni Cartwright Dictated Date: 10/22/2024 08:59 ET Assigned Physician: Rajni Cartwright Reviewed and Electronically Signed By: Rajni Cartwright Signed Date: 10/22/2024 08:59 ET Workstation ID: [id number] Transcribed By: Self Edit Transcribed Date: 10/22/2024 [...] is recommended in 1 year. MAMMO LOCATION: [facility], [address] [place] [address], [address], . -------- FINAL REPORT -------- Dictated By: Rajni Cartwright Dictated Date: 10/22/2024 08:59 ET Assigned Physician: Rajni Cartwright Reviewed and Electronically Signed By: Rajni Cartwright Signed Date: 10/22/2024 08:59 ET Workstation ID: [id number] Transcribed By: Self Edit Transcribed Date: 10/22/2024 08:59 ET us Vivek Robledo MD IMG BI PROCEDURES Final R esult * Lipid panel with reflex to direct LDL (05/13/2024 9:52 AM EST) Cholesterol 173 0 - 200 mg/dL LAB CHEMISTRY METHOD 05/13/2024 1:08 PM [facility] Triglycerides 36 0 - 150 mg/dL LAB CHEMISTRY METHOD 05/13/2024 1:08 PM [facility] HDL 87 >=40 mg/dL LAB CHEMISTRY METHOD 05/13/2024 1:08 PM [facility] LDL Calculated 79 0 - 100 mg/dL LAB CHEMISTRY METHOD 05/13/2024 1:08 PM [facility] VLDL Cholesterol Jacoby 7.2 mg/dL LAB CHEMISTRY METHOD 05/13/2024 1:08 PM [facility] Non HDL Chol. (LDL+VLDL) 86 <145 mg/dL LAB CHEMISTRY METHOD 05/13/2024 1:08 PM [facility] Chol/HDL Ratio 2.0 0.0 - 4.4 LAB CHEMISTRY METHOD 05/13/2024 1:08 PM [facility] Blood Venous blood specimen / Unknown Venipuncture / Unknown 05/13/2024 9:52 AM EST 05/13/2024 9:52 AM EST us Vivek Robledo MD LAB BLOOD ORDERABLES Aditi l Result [facility] [address] [place] [address], * Depression Screening (01/21/2024) Depression Screening abstracted us Historical Provider HEALTH MAINTENANCE Final Result * [...] (World Health Organization Fracture Risk Assessment) [facility] Department of Internal Medicine recommends using [...] alternative screening schedule based on sergo Dunaway., [facility] May 24, 2011 for patients [...] (World Health Organization Fracture Risk Assessment) [facility] Department of Internal Medicine recommendsusing National [...] alternative screening schedule based on sergo Dunaway., NEJMJanuary 2011 for patients with osteopenia (based on [...] Result * Cervical Cancer Screening: HPV (09/13/2020) [facility] Cervical Cancer Screening: HPV abstracted, negative [facility] Provider HEALTH MAINTENANCE Final Result * Colonoscopy (09/07/2015) [facility] Colonoscopy no interpretation , abstracted Anatomical Region Laterality Modality Other Historical Provider HEALTH MAINTENANCE Final Result * Hepatitis C Screening (09/30/2002) [facility] Hepatitis C Screening negative Historical Provider HEALTH MAINTENANCE Final Result from Last 3 Months or Most Recently Relevant to Health Maintenance Insurance [facility]IC[facility] Care Teams Game Designer/Creative Director Relationship Specialty Start Date End Date Andreia Nettles MD [address] [place] [id number] PCP - General Internal Medicine 01/13/25
== END 2025-03-29 12:01 | disposition home or self-care (01) ==
LOC: HO.HSMS 11:30
PROVIDERS: PCP Internal Medicine; Visit Provider Psychiatry & Neurology Neurology
DX: G30.9 Alzheimer's disease, unspecified (principal); F02.80 Dementia in other diseases classified elsewhere, unspecified severity, without behavioral disturbance, psychotic disturbance, mood disturbance, and anxiety; F32.89 Other specified depressive episodes; F41.9 Anxiety disorder, unspecified; I61.8 Other nontraumatic intracerebral hemorrhage
CPT/HCPCS: 99213; G2211

== ENCOUNTER → 2025-03-29 11:30 | Outpatient (BNVA) | payer MEDICARE, OTHER, SELFPAY | PROVIDERS: PCP Internal Medicine; Visit Provider Psychiatry & Neurology Neurology | DX: G30.9 Alzheimer's disease, unspecified (principal); F02.84 Dementia in other diseases classified elsewhere, unspecified severity, with anxiety; F32.89 Other specified depressive episodes; I61.8 Other nontraumatic intracerebral hemorrhage | CPT/HCPCS: 99212 ==

== ENCOUNTER 2025-03-31 13:30 | Outpatient (RCR) | payer MEDICARE, OTHER, SELFPAY ==
[2025-02-03 11:51] VITALS: BP 116/68; PULSE 77; RESP 16; TEMP 36.6; O2SAT 99
[2025-03-03 10:16] VITALS: BP 117/52; PULSE 81; RESP 16; TEMP 36.9; O2SAT 99
[2025-03-31 11:23] VITALS: BP 118/45; PULSE 75; RESP 18; TEMP 36.6
== END 2025-04-21 10:35 | disposition home or self-care (01) ==
LOC: HO.INF 13:30
PROVIDERS: Visit Provider Psychiatry & Neurology Neurology
DX: G30.9 Alzheimer's disease, unspecified (principal); Z00.6 Encounter for examination for normal comparison and control in clinical research program
CPT/HCPCS: 96365; J0175

== ENCOUNTER 2025-04-15 15:24 | Outpatient (AMB) | payer MEDICARE, OTHER, SELFPAY ==
--- OUTSIDE RECORDS SUMMARY | 2025-04-14 10:30 | XMS_ITS | Encounter Summary ---
Author Organization [facility] Address [address] [place] [address] Care Team Providers Care Loader Helper Sorting Yard Name Role Phone Andreia Nettles MD Primary Care Provider [phone] Reason for Referral * Care Management (Routine) - Authorized Specialty Diagnoses / Procedures Referred By Contac t Referred To Contact Care Management Diagnoses Alzheimer dementia with behavioral disturbance ([facility] V24, [facility] V28) Geronimo Romero MD [address] [place] [id number] Phone: tel: fax: Chula Gonsales RN [address] [place] [address] Referral ID Status Reason Start Date Expiration Date Visits Requested Visits Authorized [id number] Authorized Specialty Services Required 04/14/2026 1 1 Reason for Visit * Reason Comments Hospital Follow-up Encounter Details Date Type Department Care Team (Late st Contact Info) Description 04/14/2025 10:30 AM EST Office Visit Internal Medicine - [address] [phone] Geronimo Romero MD [address] [place] [id number] Hospital discharge follow-up (Primary Dx); Alzheimer dementia with behavioral disturbance ([facility] V24, [facility] V28) Social History Tobacco Use Types Packs/Day Years [...] AM EST documented as of this encounter Last Filed Vital Signs Vital Sign Reading Time Taken Comments Blood Pressure 139/72 04/14/2025 10:20 AM EST Pulse 86 04/14/2025 10:20 AM EST Temperature - - Respiratory Rate - - Oxygen Saturation - - Inhaled Oxygen Concentration - - Weight 52.3 kg (115 lb 4.8 oz) 04/14/2025 10:20 AM EST Height 172.7 cm (5' 8 ) 04/14/2025 10:20 AM EST Body Mass Index 17.53 04/14/2025 10:20 AM EST documented in this encounter Progress Notes * Geronimo Romero MD - 04/14/2025 10:30 AM EST CHIEF COMPLAINT: Hospital Follow-up IDENTIFIER: Rhonda Kim is a 69 y.o. old female who comes with her . I have obtained verbal consent from Rhonda Kim prior to the recording. I have advised Rhonda Kim that she may refuse the recording and require the recording to be turned off at any time during this encounter. History of Present Illness Rhonda Kim is a 69 y.o. year old female who is here for hospital follow-up. Patient with past medical history of Alzheimer's dementia diagnosed earlier this year and an early stage of donanemab infusion per neurology at [facility], hyperlipidemia, depression and anxiety was admitted at [facility] on 04/02/2025 with concern of acute stroke alert and vasogenic edema of occipital and temporal lobe. Her hospital course was complicated by worsening encephalopathy which improved prior to discharge. 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 Neurology and geriatric team were consulted to help manage complication from the treatment drug Kinsunla for Alzheimer's disease. This is consistent with severe presentation with tissue swelling and associated mass effect and multiple microhemorrhages more than 10. Patient was started on IV methylprednisone 1 g for 5 days. Last dose was on 04/07/2025. Geriatrics team recommended to discontinue further treatment with Kinsunla patient was discharged on prednisone 60 mg for 1 week followed by 50mg for 1 week, followed by 40 mg for 1 week, followed by 30 mg for 1 week, followed by 20 mg for 1 week, followed by 10 mg for 1 week and then finally 5 mg for 1 week. Patient will need repeat brain MRI in 2 to 4 months. She needs to follow-up with neurologist prior to scheduling of MRI of her brain. She was recommended to continue with famotidine for GI prophylaxis while on steroid. Patient was discharged on 04/08/2025. Current medications include aspirin, atorvastatin, donepezil, duloxetine, mirtazapine, Xanax (as needed), alendronate, calcium, and vitamin D. She is on a 7-week steroid taper, starting at 60 mg and reducing to 5 mg by the seventh week, maintaining 5 mg until her next neurology appointment with . Follow-up brain MRI scheduled in 2 to 4 months. Since discharge, she has returned to baseline health, though her daughter reports worsened memory loss. She has frontotemporal atrophy affecting personality and decision-making more than memory. Severe depression and anxiety managed by a psychiatrist at [facility] in [place]. Neurologist is Dr. Pablo, but no appointment secured yet. VNA service scheduled for 9 weeks, exploring future services. Daily home blood sugar monitoring shows highest reading of 182, never exceeding 200. Connected to internet via scale and blood pressure monitor, data transmitted to [facility]. ROS: GENERAL: No malaise, significant weight loss [...] SKIN: No lesions, rash or itching NEURO: No persistent headache, syncope, seizures, weakness or numbness PAST MEDICAL HISTORY: Patient Active Problem List Diagnosis Date Noted Dysarthria 08/15/2023 Hyperlipidemia 12/04/2022 Bilateral carotid artery stenosis 06/04/2022 Mild Alzheimer's dementia with mood disturbance ([facility] V24, [facility] V28) 05/10/2022 Anxiety 10/26/2021 Osteopenia of hip 01/13/2019 Anosmia 10/28/2015 Abnormal CXR 10/07/2007 Malaise and fatigue 10/21/2006 Depressive disorder 05/30/2005 Genital herpes 05/30/2005 ACTIVE MEDICATIONS: Medications Taking[1] ALLERGIES: Penicillins PHYSICAL EXAM: Visit Vitals BP 139/72 Pulse 86 Ht 1.727 m (68 ) Wt 52.3 kg (115 lb 4.8 oz) BMI 17.53 kg/m?? OB Status Postmenopausal Smoking Status Never BSA 1.62 m?? APPEARNCE: well appearing, awake, alert, in no acute distress EYES: PERRL, conjunctiva and sclera normal NOSE/SINUS: negative MOUTH/THROAT: no erythema or exudates NECK: Supple without any adenopathy HEART: regular rate, regular rhythm and no murmur RESPIRATORY: clear lungs bilaterally EXTREMITIES: No edema and Normal pulses bilaterally. NEURO: Awake, alert and oriented x 3, Normal gait and No involuntary motions. SKIN: No rashes or lesions. LABS: IMPRESSION: 1. Hospital discharge follow-up 2. Alzheimer dementia with behavioral disturbance ([facility] V24, [facility] V28) Ambulatory referral toCare Management PLAN: Information was extracted from the discharge notes from [facility]. The history was reviewed for accuracy and confirmed by myself. I have reconciled the current and discharge meds Assessment & Plan 1. 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 Pablo. - Follow-up brain MRI in 2 to 4 months to assess edema resolution. - Taking donepezil for Alzheimer's management. 2. Blood glucose management: - Daily home monitoring with recent readings: 76, 182, 144, 124, 115. - Continue monitoring fasting blood glucose. If levels remain 70-130, no additional medication needed. - If levels consistently exceed 150 or 200, consider short-term insulin or metformin. 3. Depression: - Taking duloxetine and mirtazapine for depression. - Mood improvement possibly due to steroid treatment. - Continued mental health monitoring recommended. 4. Anxiety: - Xanax available as needed for anxiety, not taken regularly. - Continued anxiety monitoring recommended. 5. Osteoporosis: - Taking alendronate weekly for osteoporosis, along with calcium and vitamin D supplements. - Continued adherence to regimen recommended. ADDITIONAL ORDERS: AMBULATORY REFERRAL TO CARE MANAGEMENT Today's documentation was made using voice recognition software.This note may contain grammatical errors secondary to this software. MD Geronimo Rao MD on 04/14/2025 at 11:14 AM EST [1] Outpatient Medications Marked as Taking for the 04/14/25 encounter (Office Visit) with Geronimo Romero MD Medication Sig Dispense Refill alendronate (FOSAMAX) [...] (one) time each day. 90 tablet 1 CALCIUM CARBONATE-VITAMIN D3 ORAL Take by mouth daily. - Oral donepeziL (ARICEPT) 5 mg tablet DULoxetine (CYMBALTA) [address] capsule Take 1 capsule (60 mg total) by mouth 1 (one) time each day. mirtazapine (REMERON) 15 mg tablet Take 1 tablet (15 mg total) by mouth 1 (one) time each day. MULTIVITAMIN ORAL 1 tab qd - Oral predniSONE 10 mg tablets,dose pack Take 1 tablet (10 mg total) by mouth. documented in this encounter Plan of Treatment Upcoming Encounters Date Type Department Care Team (Late st Contact Info) Description 07/13/2025 3:00 PM EDT Office Visit Internal Medicine - [address] [place] [phone] Ben Phillips NP [address] [place], [place] Scheduled Referrals Name Type Priority Associated Diagnoses Orde r Schedule Ambulatory referral to Care Management Outpatient Referral Routine Alzheimer dementia with behavioral disturbance ([facility] V24, [facility] V28) Ordered: 04/14/2025 documented as of this encounter Visit Diagnoses Diagnosis Hospital discharge follow-up- Primary Other follow-up examination Alzheimer dementia with behavioral disturbance ([facility] V24, [facility] V28) documented in this encounter Historical Medications * This list may reflect changes made after this encounter. predniSONE 10 mg tablets,dose pack Take 1 tablet (10 mg total) by mouth. added in this encounter Care Teams Loader Helper Sorting Yard Relationship Specialty Start Date End Date Andreia Nettles MD [address] [place], [place] PCP - General Internal Medicine 01/13/25 documented as of this encounter
[2025-04-15 15:31] VITALS: BP 126/64; PULSE 87; O2SAT 94; BMI 17.4
--- NOTE | 2025-04-15 15:31 | A.OFFVIS_ITS ---
Vital Signs 04/15/25 15:31 Height 5 ft 8 in Weight 114 lb 2 oz BMI 17.4 BP 126/64 Blood Pressure Location Lt brachial Position Sitting Pulse 87 Pulse Source Pulse Oximeter Pulse Oximetry (%) 94 Oxygen Delivery Method Room Air Intake Visit Reasons: [facility] Hospital f/u Intake Note: [facility] hospital follow up see 04.05.2025 note - Abnormal imaging Metal Sorter Required: No Accompanied by: Spouse and daughter Allergies penicillin G Allergy (Mild, Verified 03/29/25 11:31) Unknown Medication List - Last Reconciled 04/15/25 by Joaquina Rios MD [id number] 600-2-6 mg (Cerefolin Brain Oodle) 1 tab PO BEDTIME 3 months alprazolam (Xanax) 0.25 mg PO BID PRN 30 days MDD 2 tabs donepezil 10 mg PO BEDTIME duloxetine 60 mg PO DAILY mirtazapine 30 mg PO BEDTIME omeprazole 20 mg PO DAILY ondansetron HCl 4 mg PO Q8H PRN prednisone 10 mg PO DAILY HPI Comments Details: 69y/o left handed female comes for follow up of memory impairment and anxiety. she is on prednisone 50mg qd for 1 week and was rec to taper by 10 mg . she started on Kisunla - and had 3 infsuions- 3rd was on Mar 03 and her Mar 17 2025 MRI showed a New single focus suspicious of microhemorrhage in the left occipital lobe, possibly related to the amyloid therapy. 2. No findings to suggest interval development of parenchymal edema or sulcal effusion. Her memory and mood are stable .she is seeing a psychiatric prescriber at [facility].. Her neuropsyhc eval was c/w early Dementia and poorly controlled mood.she reports increased anxiety and depression. Her lexapro was increased to 30mg qd, has a therapist .Sleep is good with mirtazepine.she talks to a therapist. No thoughts of hurting herself Previous History- The patient noticed increase in forgetfulness with short term memory issues about 6mths to 1 year. It increases her anxiety which further worsens her cognition. she forgets conversations, misplace things, repeat questions, forgets appointments, uses a calender. she has trouble with computers. Her driving is Ok but anxious.she got lost once trying to find her friends house but as per her she was always bad with directions. 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 She thinks her mood worsened since then. She also had unexplained weight loss for more than 6 mths. she had nausea which is better. She was diagnosed with depression in 2003 when her father . In Mar 2020 her mood worsened and also had severe anxiety.. [facility] Medical History (Updated 04/15/25 @ 15:43 by Joaquina Rios MD) Amyloid-related imaging abnormality with edema and/or effusion (ARIA-E) Silent micro-hemorrhage of brain Alzheimer's dementia without behavioral disturbance Shingles Malaise and fatigue Seasonal allergies Asthma Arthritis Anosmia Osteopenia Anxiety Depression Surgical History Hx of colonoscopy Hx of cholecystectomy Family History Father Arthritis, rheumatoid Mother Epilepsy Aneurysm Family/Other Migraine Family/Other Migraine Social History Household Members: Spouse Alcohol intake: never Patient Tobacco Use Status: Never used Tobacco service: No Current occupational status: retired Cognitive needs: No Hearing needs: No Vision needs: Yes Physical Exam Vital Signs: Last Vital Signs Pulse 87 04/15/25 15:31 BP 126/64 04/15/25 15:31 Pulse Ox 94 04/15/25 15:31 Oxygen Delivery Method Room Air 04/15/25 15:31 BMI result Body Mass Index 17.4 Const General: cooperative, healthy appearing, comfortable and no acute distress Nutritional Appearance: thin Orientation/consciousness: patient oriented x3 Limitations: no limitations HEENT Head: Yes normal to inspection Face and sinus: Yes normal facial exam Neuro Other: Mild left UE cog wheel rigidity General: patient oriented x3 and moves all extremities Cranial nerves: Yes Normal facial strength present and Yes Midline tongue present Cognition (Neuro): normal cognition Gait exam (Neuro): Other gait observations present (mild stoop and decreased arm swing - L>r) Motor exam (neuro): 5/5 motor strength present throughout Assessment & Plan Assessment & Plan (1) Alzheimer's dementia without behavioral disturbance: Comment: MMSE 29/30 Positive AMyloid PET Code(s): G30.9 - Alzheimer's disease, unspecified; F02.80 - Dementia in other diseases classified elsewhere, unspecified severity, without behavioral disturbance, psychotic disturbance, mood disturbance, and anxiety Category: Medical (2) Depression: Code(s): F32.A - Depression, unspecified Category: Medical Qualifiers: Depression Type: other depression Qualified Code(s): F32.89 - Other s pecified depressive episodes (3) Anxiety: Code(s): F41.9 - Anxiety disorder, unspecified Category: Medical (4) Amyloid-related imaging abnormality with edema and/or effusion (ARIA-E): Code(s): R90.89 - Other abnormal findings on diagnostic imaging of central nervous syste m; G93.6 - Cerebral edema Category: Medical Plan Continue Prednisone taper- will do a MRI when she is on Prednisone 30mg or 20 mg -and consider maintain on 10 mg Duloxetine 60mg qd mirtazepine 30mg qhs Xanax 0.25 mg as needed Donepezil 10mg qd Orders: Orders MR head/brain wo con 05/17/25 G93.6 - Cerebral edema, R90.89 - Other abnormal findings on diagnostic imaging of central nervous system Medications: New prednisone 10 mg PO DAILY 30 tabs 0RF Coding Level of Care Code Est Pt Level 4 (14985) Add On Problem Visit Only Diagnoses Alzheimer's dementia without behavioral disturbance G30.9; F02.80 Other depression F32.89 Depression Type: other depression Anxiety F41.9 Amyloid-related imaging abnormality with edema and/or effusion (ARIA-E) R90.89; G93.6
--- OUTSIDE RECORDS SUMMARY | 2025-04-15 22:58 | XMS_ITS | Clinical Summary ---
Author Organization [facility] Prior to 10/03/24 Address [address] [place] [address] Care Team Providers Care Marketing Director Assisted Living Name Role Phone Vivek Robledo MD Primary Care Provider [phone] Allergies Active Allergy Reactions Criticality Noted Date [...] (two) times a day. 0 12/26/2020 Active Slater-3 Fatty Acids (Fish Oil) 1000 MG CAPS [...] age to complete this topic Care Teams Marketing Director Assisted Living Relationship Specialty Start Date End Date Vivek Robledo MD [address] [place] [address] PCP - General Internal Medicine 02/10/21
--- OUTSIDE RECORDS SUMMARY | 2025-04-15 22:58 | XMS_ITS | Encounter Summary ---
Author Organization [facility] Address [address] [place] [address] Care Team Providers Care Reversing Mill Roller Name Role Phone Andreia Nettles MD Primary Care Provider [phone] Reason for Visit * Reason Onset Date Comments VNA 04/12/2025 Encounter Details Date Type Department Care Team (Late st Contact Info) Description 04/12/2025 Telephone Internal Medicine - [facility] [address] [place], [place] [phone] Andreia Nettles MD [address] [place] [address] Social History Tobacco Use Types Packs/Day Years [...] AM EST documented as of this encounter Progress Notes * Jess Blankenship RN - 04/12/2025 2:26 PM EST Spoke with Juno CHRISTIANSON requesting VO for usp 1 time a week for 9 weeks and 3 as needed for PT and telehealth. VO given * Sharan Moon - 04/12/2025 2:16 PM EST VNA CALL Which VNA office is calling? [facility] / Full name of caller: Lolita The caller is A nurse Is the caller at the patients home?: no Reason for call: Admitted today for 9 weeks Skilled nurse 1x/week, 9 weeks, 3 prn, PT and telehealth Does caller need an urgent call back? no Was CONTACT Telephone # obtained above?: yes [phone] documented in this encounter Plan of Treatment Upcoming Encounters Date Type Department Care Team (Late st Contact Info) Description 07/13/2025 3:00 PM EDT Office Visit Internal Medicine - [address] [phone] Ben Phillips NP [address] [place] [address] documented as of this encounter Visit Diagnoses Not on filedocumented in this encounter Care Teams Reversing Mill Roller Relationship Specialty Start Date End Date Andreia Nettles MD [address] [place] [address] PCP - General Internal Medicine 01/13/25 documented as of this encounter
--- OUTSIDE RECORDS SUMMARY | 2025-04-15 22:58 | XMS_ITS | Clinical Summary ---
Author Organization [address] [facility] Address [address] [place] [address] Phone Care Team Providers Care Senior Process Analyst Name Role Phone Andreia Nettles MD Primary Care Provider [phone] Allergies Active Allergy Reactions Criticality Noted Date [...] each day. 90 tablet 1 02/24/2025 Active predniSONE 10 mg tablets,dose pack Take 1 tablet (10 mg total) by mouth. Active Active Problems Problem Noted Date Diagnosed [...] Encounters Date Type Department Care Team Description 04/14/2025 10:30 AM EST Office Visit Internal Medicine - [address] [place] [phone] Geronimo Romero MD Hospital discharge follow-up (Primary Dx); Alzheimer dementia with behavioral disturbance ([facility] V24, [facility] V28) 04/13/2025 Telephone Internal Medicine - [address] [phone] Andreia Nettles MD 04/12/2025 [facility] [address] [phone] Andreia Nettles MD 04/09/2025 [facility] [address] [phone] Blanca Prieto RN 04/09/2025 [facility] [address] [phone] Andreia Nettles MD 04/08/2025 [facility] [address] [phone] Andreia Nettles MD 04/08/2025 [facility] [address] [phone] Andreia Nettles MD 04/07/2025 [facility] [address] [phone] Andreia Nettles MD 03/18/2025 Results Follow-Up Internal Medicine - [address] [phone] Madhuri Martins [place] 01/21/2025 Telephone Internal [address] [phone] Jeaneth Zepeda, GERALDINE from Last 3 Months Immunizations Immunization Administration [...] LAPAROSCOPY, CHOLECYSTECTOMY OTHER SURGICAL HISTORY 1989?? PROCEDURE: NC DILATION & CURETTAGE DX&/THER NONOBSTETRIC COLONOSCOPY 09/07/15 PROCEDURE: HISTORICAL COLONOSCOPY; COMMENT: tics; repeat in ten yrs Medical History Medical History Date Comments Other specified personal his tory presenting hazards to health(V15.89) late 1969 DX:Other specifie d personal history presenting hazards to health(V15.89); COMMENT: had cryosurgery Obstructive airway disease ( [facility] V24, [facility] V28) 10/07/2007 DX:Obstructive airway diseas e ([facility]) Family history of bicuspid a ortic valve 11/20/2018 DX:Family history of bicuspi d aortic valve Anxiety 10/26/2021 DX:Anxiety 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 ([facility] V24, [facility] V28) 05/10/2022 DX:Mild Alzheim er's dementia with mood disturbance ([facility]) Bilateral carotid artery stenosis 06/04/2022 DX:Bilateral carotid [...] Ectopic Multiple Livin g Live Births 1 Date Outcome GA Total Labor Labor/2nd/3rd [...] Mass Index 17.53 04/14/2025 10:20 AM EST Plan of Treatment Upcoming Encounters Date Type Department Care Team (Late st Contact Info) Description 07/13/2025 3:00 PM EDT Office Visit Internal Medicine - [address] [phone] Ben Phillips NP [address] [place] [phone] Health Maintenance Due Date Last Done Comments Drug Screen 1955 Non-Opioid Controlled Substance Agreement 1955 Zoster Vaccines (1 of 2) 09/22/2003 Falls Risk Assessment 04/14/2022 Social Influencers of Health Screening 04/14/2022 Depression Screening 05/06/2024 01/21/2024 COVID-19 Vaccine ( season) 2025 03/25/2021, 07/28/2020, 07/07/2020 Influenza Vaccine [...] Modality Magnetic Resonan ce us Provider [facility] PROCEDURES Final Result * MG Mammo [...] is recommended in 1 year. MAMMO LOCATION: [facility], [address] [place] [address], [address], . -------- FINAL REPORT -------- Dictated By: Rajni Cartwright Dictated Date: 10/22/2024 08:59 ET Assigned Physician: Rajni Cartwright Reviewed and Electronically Signed By: Rajni Cartwright Signed Date: 10/22/2024 08:59 ET Workstation ID: [id number] Transcribed By: Self Edit Transcribed Date: 10/22/2024 [...] is recommended in 1 year. MAMMO LOCATION: [facility], [address] [place] [address], [address], . -------- FINAL REPORT -------- Dictated By: Rajni Cartwright Dictated Date: 10/22/2024 08:59 ET Assigned Physician: Rajni Cartwright Reviewed and Electronically Signed By: Rajni Cartwright Signed Date: 10/22/2024 08:59 ET Workstation ID: [id number] Transcribed By: Self Edit Transcribed Date: 10/22/2024 08:59 ET us Vivek Robledo MD IMG BI PROCEDURES Final R esult * Lipid panel with reflex to direct LDL (05/13/2024 9:52 AM EST) Cholesterol 173 0 - 200 mg/dL LAB CHEMISTRY METHOD 05/13/2024 1:08 PM [facility] Triglycerides 36 0 - 150 mg/dL LAB CHEMISTRY METHOD 05/13/2024 1:08 PM [facility] HDL 87 >=40 mg/dL LAB CHEMISTRY METHOD 05/13/2024 1:08 PM EST [facility] LDL Calculated 79 0 - 100 mg/dL LAB CHEMISTRY METHOD 05/13/2024 1:08 PM [facility] VLDL Cholesterol Jacoby 7.2 mg/dL LAB CHEMISTRY METHOD 05/13/2024 1:08 PM [facility] Non HDL Chol. (LDL+VLDL) 86 <145 mg/dL LAB CHEMISTRY METHOD 05/13/2024 1:08 PM [facility] Chol/HDL Ratio 2.0 0.0 - 4.4 LAB CHEMISTRY METHOD 05/13/2024 1:08 PM [facility] Blood Venous blood specimen / Unknown Venipuncture / Unknown 05/13/2024 9:52 AM EST 05/13/2024 9:52 AM EST Vivek Robledo MD LAB BLOOD ORDERABLES Aditi l Result [facility] [address] [place] [address], * Depression Screening (01/21/2024) Depression Screening abstracted [...] (World Health Organization Fracture Risk Assessment) [facility] Department of Internal Medicine recommends using National [...] alternative screening schedule based on sergo Dunaway., [employer] [facility] [employer] May 24, 2011 for patients with osteopenia (based on hip BMD T-score) is as follows: * advanced osteopenia (T scores -2.00 to -2.49), BMD testing every year * moderate osteopenia (T scores -1.50 to -1.99), BMD testing every 5 years mild osteopenia or normal BMD (T scores -1.50 and higher), BMD testing every 15 years Procedure Note Chyna Mendosa MD - 12/20/2022 BONE DENSITY (DEXA) Lumbar Spine T-score is [...] (World Health Organization Fracture Risk Assessment) [facility] Department of Internal Medicine recommendsusing National Osteoporosis [...] screening schedule based on divine Dunaway al., NEJMJanuary 2011 for patients with osteopenia (based on hip BMD T-score) is as follows: * advanced osteopenia (T scores -2.00 to -2.49), BMD testing every year * moderate osteopenia (T scores -1.50 to -1.99), BMD testing every 5years mild osteopenia or normal BMD (T scores -1.50 and higher), BMD testingevery 15 years us Vivek Robledo MD IMG DXA PROCEDURES Final Result * Cervical Cancer Screening: HPV (09/13/2020) Cervical Cancer Screening: HPV abstracted, negative Historical Provider HEALTH MAINTENANCE Final Result * Colonoscopy (09/07/2015) Colonoscopy no interpretation , abstracted Anatomical Region Laterality Modality Other Historical Provider HEALTH MAINTENANCE Final Result * Hepatitis C Screening (09/30/2002) Hepatitis C Screening negative Historical Provider HEALTH MAINTENANCE Final Result from Last 3 Months or Most Recently Relevant to Health Maintenance Insurance [facility] MEDICARE Care Teams Senior Process Analyst Relationship Specialty Start Date End Date Andreia Nettles MD [address] [place] [address] PCP - General Internal Medicine 01/13/25
--- OUTSIDE RECORDS SUMMARY | 2025-04-15 22:58 | XMS_ITS | Encounter Summary ---
Author Organization [facility] Address [address] [place] [address] Care Team Providers Care Family Program Specialist Name Role Phone Andreia Nettles MD Primary Care Provider [phone] Reason for Visit * Reason Onset Date Comments Request For Order(s) 04/13/2025 [facility] [id number] Encounter Details Date Type Department Care Team (Late st Contact Info) Description 04/13/2025 Telephone Internal Medicine - [facility] [address] [place], [place] [phone] Andreia Nettlse MD [address] [place], [place] Social History Tobacco Use Types Packs/Day [...] as of this encounter Progress Notes * Marybel Shetty - 04/13/2025 4:19 PM EST Faxed order received from [facility]. Orders placed in nAdreia Nettles MD bin for signing, please fax to [phone]. documented in this encounter Plan of Treatment Upcoming Encounters Date Type Department Care Team (Late st Contact Info) Description 07/13/2025 3:00 PM EDT Office Visit Internal Medicine - [address] [phone] Ben Phillips, DRAGAN [address] [place] [address] documented as of this encounter Visit Diagnoses Not on filedocumented in this encounter Care Teams Family Program Specialist Relationship Specialty Start Date End Date Andreia Nettles MD [address] [place] [address] PCP - General Internal Medicine 01/13/25 documented as of this encounter
--- OUTSIDE RECORDS SUMMARY | 2025-04-15 22:58 | XMS_ITS | Encounter Summary ---
Author Organization [facility] Address [address] [place] [address] Care Team Providers Care Shirt Sewer Name Role Phone Andreia Nettles MD Primary Care Provider [phone] Reason for Visit * Reason Onset Date Comments VNA 04/09/2025 Encounter Details Date Type Department Care Team (Late st Contact Info) Description 04/09/2025 Telephone Internal Medicine - [facility] [address] [place], [place] [phone] Andreia Nettles MD [address] [place], [place] Social History Tobacco Use Types Packs/Day [...] as of this encounter Progress Notes * Sharan Moon - 04/09/2025 1:42 PM EST FYI * Sumaya Brantley MA - 04/09/2025 1:38 PM EST Is this a FYI or do they need a call back? * Sharan Moon - 04/09/2025 12:37 PM EST VNA CALL Which VNA office is calling? [facility] / Full name of caller: Alia Riddle The caller is A nurse Is the caller at the patients home?: no Reason for call: Start of care 04/12/25 Does caller need an urgent call back? no Was CONTACT Telephone # obtained above?: yes [phone] documented in this encounter Plan of Treatment Upcoming Encounters Date Type Department Care Team (Late st Contact Info) Description 07/13/2025 3:00 PM EDT [facility] [address] [place], [place] [phone] Ben Phillips NP [address] [place], [place] documented as of this encounter Visit Diagnoses Not on filedocumented in this encounter Care Teams Shirt Sewer Relationship Specialty Start Date End Date Andreia Nettles MD [address] [place] [address] PCP - General Internal Medicine 01/13/25 documented as of this encounter
--- OUTSIDE RECORDS SUMMARY | 2025-04-15 22:58 | XMS_ITS ---
Author Organization [address] Address [address] [place] [phone] Phone Care Team Providers Care Ed Special Education Teacher Name Role Phone Andreia Nettles MD Primary Care Provider [phone] Chronic Care Management Status:Identified (Enrolling) Start date:04/21/2025 Enrollment reason:Referred by provider Case Team Name Relationship Phone Chula Gonsales RN(Responsible Staff) Caseworker Intake Continued Care and Services Coordination
--- OUTSIDE RECORDS SUMMARY | 2025-04-15 22:58 | XMS_ITS | Encounter Summary ---
Author Organization [facility] Address [address] [place] [address] Care Team Providers Care Building Services Supervisor Name Role Phone Andreia Nettles MD Primary Care Provider [phone] Encounter Details Date Type Department Care Team (Late st Contact Info) Description 03/18/2025 Results Follow-Up Internal Medicine - [address] [phone] Madhuri Martins [place] Social History Tobacco Use [...] PM EDT Office Visit Internal Medicine - [address] [phone] Ben Phillips NP [address] [place] [address] documented as of this encounter Visit Diagnoses Not on filedocumented in this encounter Care Teams Building Services Supervisor Relationship Specialty Start Date End Date Andreia Nettles MD [address] [place], [place] [address]ial Mernaanthony [place], [place] [address] PCP - General Internal Medicine 01/13/25 documented as of this encounter
== END 2025-04-15 16:20 | disposition home or self-care (01) ==
LOC: HO.HSMS 15:24
PROVIDERS: PCP Internal Medicine; Visit Provider Psychiatry & Neurology Neurology
DX: G30.9 Alzheimer's disease, unspecified (principal); F02.80 Dementia in other diseases classified elsewhere, unspecified severity, without behavioral disturbance, psychotic disturbance, mood disturbance, and anxiety; F32.89 Other specified depressive episodes; F41.9 Anxiety disorder, unspecified; R90.89 Other abnormal findings on diagnostic imaging of central nervous system; G93.6 Cerebral edema
CPT/HCPCS: 99214; G2211

== ENCOUNTER → 2025-04-15 15:24 | Outpatient (BNVA) | payer MEDICARE, OTHER, SELFPAY | PROVIDERS: PCP Internal Medicine; Visit Provider Psychiatry & Neurology Neurology | DX: G30.9 Alzheimer's disease, unspecified (principal); F02.80 Dementia in other diseases classified elsewhere, unspecified severity, without behavioral disturbance, psychotic disturbance, mood disturbance, and anxiety; F32.89 Other specified depressive episodes; F41.9 Anxiety disorder, unspecified; R90.89 Other abnormal findings on diagnostic imaging of central nervous system; G93.6 Cerebral edema | CPT/HCPCS: 99212 ==